=== PATIENT | female | born 1935 | race Caucasian/White ===

== ENCOUNTER 2018-01-26 14:26 | Emergency (ER) | payer OTHER, MEDICARE ==
--- NOTE | 2018-01-26 14:45 | PDOC ---
Rapid Medical Evaluation Time Seen by Provider: 01/26/18 14:43 Medical Evaluation: Allergies Allergy/AdvReac Type Severity Reaction Status Date / Time No Known Allergies Allergy Verified 02/07/16 19:50 01/26/18 14:44 I have performed a brief in-person evaluation of this patient. The patient presents with a chief complaint of: L foot pain s/p trip and fall, no LOC Pertinent physical exam findings:L mid foot pain/swelling I have ordered the following:xray The patient will proceed to the ED for further evaluation. Discharge Disposition - Diagnosis Foot pain, left - Referrals Referrals: Yehuda Ruff MD [Primary Care Provider] - - Patient Instructions - Post Discharge Activity
[2018-01-26 14:47] VITALS: BP 113/56; PULSE 77; TEMP 98; BMI 22.6
--- NOTE | 2018-01-26 15:31 | PDOC ---
History of Present Illness - General Chief Complaint: Injury Stated Complaint: INJURY Time Seen by Provider: 01/26/18 14:43 - History of Present Illness Initial Comments: 83-year-old female left foot pain after twisting injury. The injury occurred yesterday. She did not fall she simply twisted her left foot. She points to the areas of the second and third MTPJs as the area of her discomfort. Pain is exacerbated with weightbearing relieved with rest. 01/26/18 15:28 Past History - Past Medical History Allergies/Adverse Reactions: Allergies Allergy/AdvReac Type Severity Reaction Status Date / Time No Known Allergies Allergy Verified 01/26/18 14:47 Home Medications: Ambulatory Orders Aspirin [ASA -] 81 mg PO DAILY 02/07/16 Atorvastatin Ca [Lipitor] 20 mg PO HS 02/07/16 Calcitriol [Rocaltrol -] 0.25 mcg PO HS 02/07/16 Docusate Sodium [Stool Softener] 50 mg PO HS 02/07/16 Metoprolol Tartrate 12.5 mg PO HS 02/07/16 Metoprolol Tartrate 25 mg PO AM 02/07/16 Hypercholesterolemia: Yes Lung CA: Yes - Suicide/Smoking/Psychosocial Hx Smoking History: Never smoked Have you smoked in the past 12 months: No If you are a former smoker, when did you quit?: 28 yrs Information on smoking cessation initiated: No Hx Alcohol Use: No Drug/Substance Use Hx: No Substance Use Type: None Review of Systems - Review of Systems Musculoskeletal: Yes: See HPI, Joint Pain All Other Systems: Reviewed and Negative *Physical Exam - Vital Signs Last Vital Signs Temp Pulse Resp BP Pulse Ox 98.0 F 77 16 113/56 100 01/26/18 14:44 01/26/18 14:44 01/26/18 14:44 01/26/18 14:44 01/26/18 14:44 - Physical Exam Comments: Left foot skin color and temperature are normal is full range of motion of the ankle and knee. There is no tenderness about the knee proximal fibula or along its distal course. Thighs and calves are soft and nontender. No tenderness about the medial malleolus, lateral malleolus, base of the fifth metatarsal, or navicular. There is tenderness about the second third MTPJ of the left foot. There are no gross sensorimotor deficits she is neurovascularly intact. 01/26/18 15:28 Medical Decision Making - Medical Decision Making Do not appreciate an acute fracture on radiograph today. This is most likely and MTP sprain of the left foot hard sole shoe weight-bear as tolerated with crutches follow-up with orthopedic surgery 01/26/18 15:29 *DC/Admit/Observation/Transfer Diagnosis at time of Disposition: Foot pain, left, Sprain of foot - Discharge Dispostion Disposition: HOME Condition at time of disposition: Stable Decision to Admit order: No - Referrals Referrals: Yehuda Ruff MD [Primary Care Provider] - Carroll Barajas MD [Staff Physician] - - Patient Instructions Printed Discharge Instructions: DI for Foot Sprain Additional Instructions: A past tolerated with use of crutches and the hard sole shoe. Elevate your foot for swelling control. May take Tylenol for pain. Follow-up with orthopedic surgery in 2-3 days for further evaluation and treatment options. Return to the emergency room should symptoms worsen or go unresolved. - Post Discharge Activity
== END 2018-01-26 15:54 | disposition home or self-care (01) ==
LOC: JERFT 14:26
DX: S93.692A Other sprain of left foot, initial encounter (principal); X50.1XXA Overexertion from prolonged static or awkward postures, initial encounter; Y93.89 Activity, other specified; Y92.89 Other specified places as the place of occurrence of the external cause; Y99.8 Other external cause status
CPT/HCPCS: 73630-TC-LT; 99281-25

== ENCOUNTER 2019-02-08 15:05 | Emergency (ER) | payer OTHER, MEDICARE | END 2019-02-08 21:35 | disposition home or self-care (01) | LOC: JER 15:05 ==

== ENCOUNTER 2020-01-13 21:12 | Inpatient (IN) | payer OTHER, MEDICARE ==
--- NOTE | 2020-01-13 21:57 | PDOC ---
History of Present Illness - General Stated Complaint: FALL Time Seen by Provider: 01/13/20 21:56 History Source: Patient, Other (daughter) - History of Present Illness Initial Comments: 01/13/20 21:57 HPI: This is an 85 y/o female with a PMH of bronchogenic Ca s/p lobectomy, R. lung nodules s/p radiation (2017), HTN, HLD, COPD on 3L NC BIBA after an unwitnessed fall at home. Per the daughter, the patient got up when she was out of the room to try and walk, and when she came back she found her down on the ground. She fell on her left side, and is complaining of back and left rib pain. Patent is also complaining of abdominal pain, shortness of breath, but denies chest pain. When she was brought it by EMS, she was tachycardic in the 140's. ROS: GENERAL/CONSTITUTIONAL: No fever/chills. Yes weakness. HEAD, EYES, EARS, NOSE AND THROAT: Hard of hearing in both ears. CARDIOVASCULAR: No chest pain or Yes shortness of breath. RESPIRATORY: No cough, wheezing, or hemoptysis. GASTROINTESTINAL: No nausea, vomiting, diarrhea or constipation. GENITOURINARY: No dysuria, frequency, or change in urination. MUSCULOSKELETAL: Yes right sided rib pain, diffuse back pain. SKIN: No rash NEUROLOGIC: No headache, vertigo, loss of consciousness, or change in strength/sensation. HEMATOLOGIC/LYMPHATIC: No anemia, easy bleeding, or history of blood clots. ALLERGIC/IMMUNOLOGIC: No hives or skin allergy. PMH: bronchogenic Ca s/p lobectomy, R. lung nodules s/p radiation (2017), HTN, HLD, COPD on 3L NC Social Hx: Denies current etoh or tobacco Meds: See nurse note. Allergies: Azithromycin PE: GENERAL: Awake, alert. Patient has confusion at baseline per daughter. Patient laying in bed, tachypneic with some accessory muscle use. HEAD: No signs of trauma. No tenderness to palpation. EYES: PERRLA, EOMI NECK: Normal ROM, supple, no lymphadenopathy, JVD, or masses. No tenderness to palpation of cervical spine. LUNGS: Breath sounds equal, clear to auscultation bilaterally. No wheezes, and no crackles HEART: Tachycardic and regular. ABDOMEN: Soft, diffusely tender to palpation. MUSCULOSKELETAL: Tenderness to palpation along thoracic and lumbar spine. EXTREMITIES: Normal range of motion, no edema. No clubbing or cyanosis. No cords, erythema, or tenderness NEUROLOGICAL: Cranial nerves II through XII grossly intact. Normal speech, normal gait SKIN: Warm, Dry, normal turgor, no rashes or lesions noted. ' MDM: 01/14/20 00:05 This is an 85 y/o female with a PMH of bronchogenic Ca s/p lobectomy, R. lung nodules s/p radiation (2017), HTN, HLD, COPD on 3L NC BIBA after an unwitnessed fall at home. Per the daughter, the patient got up when she was out of the room to try and walk, and when she came back she found her down on the ground. She fell on her left side, and is complaining of back and left rib pain. Patent is also complaining of abdominal pain, shortness of breath, but denies chest pain. Patient is extremely hard of hearing and currently tachypneic, she also has confusion at baseline. Unable to assess where she is in pain. - When patient arrived she was tachycardic in the 140's - Short of breath, placed on 7L NC which was upgraded to non-rebreather - Saturating at 100% on non-rebreather. Patient is still tachypneic. - CBC, CMP, Cardiac panel, UA, urine culture, blood culture, EKG - Unwitnessed fall, with diffuse tenderness to palpation. Will CT head, cervical, lumbar and thoracic spine. -EKG with no ST elevations. sinus tachycardia with short AK, left atrial enlargement, left ventricular hypertrophy with repolarization abnormality. Abnormal EKG Vent rate 138 bpm. AK interval 98ms. QRS duration 72ms. QT/QTc 298/451. - Will give 2mg morphine and IV acetaminophen for pain control and reassess - Metoprolol 5mg to control tachycardia - HR now in the 90's. Patient is able to answer questions. She says that she doesn't have any pain when she isn't moving. - Labs significant for: - Troponin .12 - WBC 27.5k. Patient is on prednisone. Not sure if this is causing the leukocytosis or if she also has an infection. - UA negative for infection - Gave ASA - Repeat EKG with no ST elevations. Unchanged from previous EKG. Sinus tachycardia. Left ventricular hypertrophy with repolarization abnormalities. Vent rate 132 bpm. AK interval 124ms. QRS duration 66ms. QT/QTc 302/447ms - Patient denies any current chest pain. Improvement in SOB - Plan to admit to tele. Repeat troponin and EKG at 01:00 01/14/20 00:05 - Patient signed out to Dr. Rabago Past History - Medical History Allergies/Adverse Reactions: Allergies Allergy/AdvReac Type Severity Reaction Status Date / Time azithromycin [From Zithromax] Allergy Verified 02/08/19 15:33 Home Medications: Ambulatory Orders Aspirin [ASA -] 81 mg PO DAILY 02/07/16 Atorvastatin Ca [Lipitor] 20 mg PO HS 02/07/16 Docusate Sodium [Stool Softener] 100 mg PO HS 02/07/16 Budesonide/Formeterol Fumarate [SYMBICORT 80/4.5mcg -] 2 puff IH DAILY 12/17/18 Fluticasone Propionate [Flovent Diskus] 50 mcg IH DAILY MDD 2 puffs 12/17/18 Pantoprazole Sodium [Protonix -] 40 mg PO DAILY 12/17/18 Acetaminophen [Tylenol .Regular Strength -] 650 mg PO Q6H PRN tablet 12/23/18 Calcium 500Mg/Vit-D 200 Units [Os-Hector 500+D -] 2 tab PO DAILY #30 tab 12/23/18 Lubiprostone [Amitiza] 24 mcg PO DAILY PRN 02/08/19 Albuterol 2.5/Ipratropium 0.5 [Duoneb -] 1 neb IH QID 01/14/20 predniSONE [Deltasone -] 15 mg PO DAILY 01/14/20 Cancer: Yes (LUNG CA, lobectomy on 3lnc at home) COPD: Yes HTN: Yes Hypercholesterolemia: Yes Lung CA: Yes - Psycho-Social/Smoking History Smoking History: Former smoker Have you smoked in the past 12 months: No If you are a former smoker, when did you quit?: 30years Heart Score/ECG Review - History History: Slightly suspicious - Electrocardiogram EKG: Non specific repolarization disturbance - Age Age: >/= 65 - Risk Factors Risk Factors Heart Score: Yes Hx Hypercholesterolemia, Yes Hx Hypertension Based on the list above the patient has:: 1-2 risk factors - Troponin Troponin: 1-3x normal limit - Score Heart Score - Total: 5 - ECG Intrepretation Comment:: 01/14/20 00:[address] elevations. sinus tachycardia with short AK, left atrial enlargement, left ventricular hypertrophy with repolarization abnormality. Abnormal EKG Vent rate 138 bpm. AK interval 98ms. QRS duration 72ms. QT/QTc 298/451. Repeat EKG with no ST elevations. Unchanged from previous EKG. Sinus tachycardia. Left ventricular hypertrophy with repolarization abnormalities. Vent rate 132 bpm. AK interval 124ms. QRS duration 66ms. QT/QTc 302/447ms ED Treatment Course - LABORATORY CBC & Chemistry Diagram: 01/14/20 08:00 01/14/20 08:00 Discharge - Discharge Information Problems reviewed: Yes Clinical Impression/Diagnosis: Compression fracture of body of thoracic vertebra Mastoiditis Qualifiers: Laterality: unspecified laterality Qualified Code(s): H70.90 - Unspecified mastoiditis, unspecified ear Lung cancer Qualifiers: Laterality: unspecified laterality Lung location: unspecified part of lung Qualified Code(s): C34.90 - Malignant neoplasm of unspecified part of unspecified bronchus or lung Pneumonia Qualifiers: Qualified Code(s): J18.9 - Pneumonia, unspecified organism Fall Qualifiers: Encounter type: initial encounter Qualified Code(s): W19.XXXA - Unspecified fall, initial encounter - Admission Yes - Follow up/Referral - Patient Discharge Instructions - Post Discharge Activity
[2020-01-13] MEDS ORDERED: SODIUM CHLORIDE 0.9% 500 ML INFUS.BAG IV ONE (22:00)
[2020-01-13 22:14] VITALS: BMI 24.4
[2020-01-13 22:17] LABS: BASO % 1.1 % (0-2.0); HEMATOCRIT 46.4 % (32.4-45.2); HEMOGLOBIN 14.8 GM/dL (10.7-15.3); LYMPH % 4.9 % (8-40); MCH 29.1 pg (25.7-33.7); MEAN PLT VOLUME 8.2 fl (7.5-11.1); MONO % 4.2 % (3.8-10.2); NEUT % 89.8 % (42.8-82.8); PLATELET COUNT 196 K/MM3 (134-434); RDW 14.6 % (11.6-15.6); WHITE BLOOD COUNT 27.5 K/mm3 (4.0-10.0)
[2020-01-13 22:24] LABS: INR 1.03 (0.83-1.09); PROTHROMBIN TIME (PATIENT) 12.1 SEC (9.7-13.0)
[2020-01-13 22:27] LABS: ACTIVATED PTT 25.3 SECONDS (25.2-36.5)
[2020-01-13] MEDS ORDERED: PIPERACILLIN/TAZOB 3.375 GM 3.375 GM in DEXTROSE 5%-WATER - 50 ML IVPB ONE (22:39)
[2020-01-13 22:46] LABS: ALBUMIN 3.3 g/dl (3.4-5.0); BILIRUBIN,TOTAL 0.5 mg/dL (0.2-1); BLOOD UREA NITROGEN 21.2 mg/dL (7-18); CALCIUM 8.9 mg/dL (8.5-10.1); CREATININE 0.7 mg/dL (0.55-1.3); POTASSIUM 4.1 mmol/L (3.5-5.1); TOT PROT 6.4 g/dl (6.4-8.2)
[2020-01-13] MEDS ORDERED: ACETAMINOPHEN 1000 MG/100 ML VIAL (NON FORMULARY) IVPB ONE (23:05)
[2020-01-13] MEDS ORDERED: morphine CARPU-JECT 2 MG/1 ML DISP.SYRIN IVPUSH ONE (23:14)
[2020-01-13 23:18] LABS: ANISOCYTOSIS 1+; MACROCYTOSIS 0
[2020-01-13 23:21] LABS: PLATELET ESTIMATE ADEQUATE
[2020-01-13] MEDS ORDERED: ACETAMINOPHEN INJECTION 100 ML IVPB ONE (23:46)
[2020-01-13] MEDS ORDERED: MORPHINE SULFATE 2 MG/ML VIAL ONE (23:46)
[2020-01-13] MEDS ORDERED: PIPERACILLIN/TAZOB 3.375 GM 3.375 GM/50 ML BAG IVPB ONE (23:47)
[2020-01-13] MEDS ORDERED: ASPIRIN 81 MG CHEWABLE TABLETS PO ONE (23:58)
[2020-01-13] MEDS ORDERED: METOPROLOL TARTRATE 5 MG/5 ML VIAL IVPUSH ONE (23:59)
[2020-01-14] MEDS ORDERED: METOPROLOL TARTRATE 5 MG/5 ML VIAL ONE (00:03)
[2020-01-14] MEDS ORDERED: ASPIRIN 81 MG CHEWABLE TABLETS ONE (00:03)
--- NOTE | 2020-01-14 00:49 | PDOC ---
*Physical Exam - Vital Signs Last Vital Signs Temp Pulse Resp BP Pulse Ox 98.2 F 141 H 27 H 122/72 92 L 01/13/20 22:10 01/13/20 22:10 01/13/20 22:10 01/13/20 22:10 01/13/20 22:10 ED Treatment Course - LABORATORY CBC & Chemistry Diagram: 01/14/20 08:00 01/14/20 08:00 - ADDITIONAL ORDERS Additional order review: Laboratory Results 01/13/20 01/13/20 22:00 22:00 PT with INR 12.10 INR 1.03 PTT (Actin FS) 25.3 Sodium 142 Potassium 4.1 Chloride 107 Carbon Dioxide 26 Anion Gap 9 BUN 21.2 H Creatinine 0.7 Est GFR (CKD-EPI)AfAm 91.57 Est GFR (CKD-EPI)NonAf 79.00 Random Glucose 179 H Calcium 8.9 Total Bilirubin 0.5 AST 32 ALT 46 Alkaline Phosphatase 62 Troponin I 0.12 H Total Protein 6.4 Albumin 3.3 L 01/13/20 22:00 RBC 5.10 MCV 91.0 MCHC 32.0 RDW 14.6 MPV 8.2 Neutrophils % 89.8 H D Lymphocytes % 4.9 L D Monocytes % 4.2 Eosinophils % 0.0 D Basophils % 1.1 - Medications Given in the ED: ED Medications Discontinued Medications Generic Name Dose Route Start Last Admin Trade Name Freq PRN Reason Stop Dose Admin Acetaminophen 1,000 mg 01/13/20 23:05 01/13/20 23:59 Ofirmev Injection - IVPB 01/13/20 23:06 1,000 mg ONCE ONE Administration Piperacillin Sod/Tazobactam 50 mls @ 100 mls/hr 01/13/20 22:39 01/13/20 23:58 Sod 3.375 gm/ Dextrose IVPB 01/13/20 23:08 100 mls/hr ONCE ONE Administration Protocol Morphine Sulfate 2 mg 01/13/20 23:14 01/13/20 23:59 Morphine Injection - IVPUSH 01/13/20 23:15 2 mg ONCE ONE Administration Sodium Chloride 500 ml 01/13/20 22:00 01/13/20 22:30 Normal Saline - IV 01/13/20 22:01 500 ml ONCE ONE Administration Medical Decision Making - Medical Decision Making This is an 85 y/o female with a PMH of bronchogenic Ca s/p lobectomy, R. lung nodules s/p radiation (2017), HTN, HLD, COPD on 3L NC, Confused at baseline, BIBA after an unwitnessed fall at home. Found to be tachypneic, hypoxic, put on non-rebreather. - satting 100% on nonrebreather - EKG with no ST elevations. sinus tachycardia with short KS, left atrial enlargement, left ventricular hypertrophy with repolarization abnormality. Abnormal EKG Vent rate 138 bpm. KS interval 98ms. QRS duration 72ms. QT/QTc 298/451. - given 2mg morphine and IV acetaminophen, Metoprolol 5mg for tachycardia - Labs significant for: Troponin 0.12, WBC 27.5k. Patient is on prednisone for COPD - Gave ASA - Repeat EKG unchanged - Patient denies chest pain Pt signed out by Dr. Pardo Pending CT Will be admitted to hospitalist given elevated troponin 01/14/20 00:49 UA: -LE, -nitrites 01/14/20 03:16 Elevated second troponin 0.38 CT head: Chronic microvascular changes. No acute intracranial abnormality. No hemorrhage. Opacification of the bilateral mastoid air cells as well as a part of the left middle ear canal. Could represent granulation tissue but check for otitis/mastoiditis. CT AP: no bowel obstruction or inflammation. No free intraperitoneal air or free fluid. Negative for diverticulitis or colitis. Normal appendix. Gallstones noted in the gallbladder. Multiple liver lesions are noted that have the appearance of cysts. Normal spleen, pancreas, adrenal glands, kidneys, urinary tract and urinary bladder. Multiple uterine masses are identified. Some have the appearance of calcified fibroids but some are indeterminate. Healing left inferior pubic ramus fracture is noted. CT chest: Positive for fairly advanced emphysematous changes. Multiple bilateral blebs as well. There is also infiltrate and atelectasis in the right upper lobe. infiltrates in the lower lobes which may be chronic. Some of the right upper lobe atelectatic change has a nodular appearance on the axial views and therefore follow-up recommended to rule out neoplasm. No pneumothorax or pneumomediastinum. No pleural effusions. Cardiomegaly and calcified coronary artery plaque. No pericardial effusions. No thoracic aort icaneurysm. Healing left rib fractures. CT lumbar: There is a mild compression fracture of the superior endplate of T12. Less than 50% loss of height. This is of indeterminate age. No retropulsion. Slight anterolisthesis of L5 on S1 likely degenerative. Sclerotic foci in the L2 vertebral body. Indeterminate. Will need follow-up to make sure there is no bony metastatic disease. CT thoracic spine: Multiple compression fractures: T8, T9, T12. These fractures are of indeterminate age. No major retropulsion. Slight loss of height superior endplate T10. There is T5 compression fracture with vertebroplasty. Two physician acknowledgement of code status. This rewriter and attending (Dr. Gonzalez) discussed code status with patient's daughter. Pt's daughter states that patient is DNR (no compressions), but can be intubated. Disposition Admit Discharge - Discharge Information Problems reviewed: Yes Clinical Impression/Diagnosis: Compression fracture of body of thoracic vertebra Mastoiditis Qualifiers: Laterality: unspecified laterality Qualified Code(s): H70.90 - Unspecified mastoiditis, unspecified ear Fall Qualifiers: Encounter type: initial encounter Qualified Code(s): W19.XXXA - Unspecified fall, initial encounter Lung cancer Qualifiers: Laterality: unspecified laterality Lung location: unspecified part of lung Qualified Code(s): C34.90 - Malignant neoplasm of unspecified part of unspe cified bronchus or lung Pneumonia Qualifiers: Qualified Code(s): J18.9 - Pneumonia, unspecified organism - Follow up/Referral - Patient Discharge Instructions - Post Discharge Activity
--- NOTE | 2020-01-14 00:50 | PDOC ---
Attending Attestation - Resident Resident Name: Clarissa Rabago - ED Attending Attestation I have performed the following: I have examined & evaluated the patient, The case was reviewed & discussed with the resident, I agree w/resident's findings & plan - HPI HPI: 01/14/20 20:52 This is an 85 y/o female with a PMH of bronchogenic Ca s/p lobectomy, R. lung nodules s/p radiation (2017), HTN, HLD, COPD on 3L NC BIBA after an unwitnessed fall at home. Per the daughter, the patient got up when she was out of the room to try and walk, and when she came back she found her down on the ground. She fell on her left side, and is complaining of back and left rib pain. Patent is also complaining of abdominal pain, shortness of breath, but denies chest pain. - Physicial Exam PE: 01/14/20 20:53 Pt is tachycardixc and anxious pt owning agree with resident exam - Medical Decision Making 01/14/20 02:07 Pt's UA is normal Pt has an elevated WBC count; unclear if this is solely due to her chronic use of steroids; but she a;lso has a significant leftward shift 01/14/20 02:08 01/14/20 02:08 First trop is elevated at 0.12; she will have a repeat trop. This is likely due to demand ischemia, denny as she arrived with a tachycardia of 140s. 01/14/20 02:08 01/14/20 02:45 Trop continues to go up; Pt's CT head shows no active bleeding, so we are safe to give lovenox to thin her blood. 01/14/20 03:43 Patient Name: KETTY TRIMBLE THIS IS A PRELIMINARY REPORT DATE OF SERVICE: 2020-01-14 01:03:42 IMAGES: [id number] EXAM: CT abdomen and pelvis with contrast and CT of the lumbar spine with contrast HISTORY: Tachycardia abdominal pain fall without injury high white count COMPARISON: None. FINDINGS: Abdomen and pelvis: There is no bowel obstruction or inflammation. There are some colonic diverticula. Negative for diverticulitis or colitis. Normal appendix. Gallstones noted in the gallbladder. Multiple liver lesions are noted that have the appearance of cysts. Normal spleen. Normal pancreas. Normal adrenal glands. Normal kidneys urinary tract and urinary bladder. Multiple uterine masses are identified. Some have the appearance of calcified fibroids but some are indeterminate. Follow-up recommended to rule out [employer] neoplasm. No free intraperitoneal air or free fluid. Healing left inferior pubic ramus fracture is noted. Lumbar spine: There is a mild compression fracture of the superior endplate of T12. Less than 50% loss of height. This is of indeterminate age. No retropulsion. Slight anterolisthesis of L5 on S1 likely degenerative. Sclerotic foci in the L2 vertebral body. Indeterminate. Will need follow-up to make sure there is no bony metastatic disease. 01/14/20 03:46 Patient Name: KETTY TRIMBLE THIS IS A PRELIMINARY REPORT DATE OF SERVICE: 2020-01-14 00:59:36 IMAGES: [id number] EXAM: CT chest without and with contrast and CT thoracic spine with contrast HISTORY: Tachycardia abdominal pain fall high white count COMPARISON: None. FINDINGS: Chest: Positive for fairly advanced emphysematous changes. Multiple bilateral blebs as well. There is also infiltrate and atelectasis in the right upper lobe. Difficult to determine how much of this is chronic or if there is an acute component. Similarly there are infiltrates in the lower lobes which may be chronic but not certain and therefore follow-up recommended to exclude acute component/pneumonia. Please correlate with any acute pulmonary symptoms. Some of the right upper lobe atelectatic change has a nodular appearance on the axial views and therefore follow-up recommended to rule out neoplasm. No pneumothorax or pneumomediastinum. No pleural effusions. Cardiomegaly and calcified coronary artery plaque. No pericardial effusions. No thoracic aortic aneurysm. Healing left rib fractures 01/14/20 20:54 Pt will be admitted for further eval. Discharge - Discharge Information Problems reviewed: Yes Clinical Impression/Diagnosis: Compression fracture of body of thoracic vertebra Mastoiditis Qualifiers: Laterality: unspecified laterality Qualified Code(s): H70.90 - Unspecified mastoiditis, unspecified ear Fall Qualifiers: Encounter type: initial encounter Qualified Code(s): W19.XXXA - Unspecified fall, initial encounter Lung cancer Qualifiers: Laterality: unspecified laterality Lung location: unspecified part of lung Qualified Code(s): C34.90 - Malignant neoplasm of unspecified part of unspecified bronchus or lung Pneumonia Qualifiers: Qualified Code(s): J18.9 - Pneumonia, unspecified organism - Admission Yes - Follow up/Referral - Patient Discharge Instructions - Post Discharge Activity
[2020-01-14 00:57] LABS: PH,URINE 5.5 (5.0-8.0); URINE APPEARANCE Clear; URINE BILIRUBIN 1+ (NEGATIVE); URINE COLOR Yellow; URINE GLUCOSE (UA) Negative (NEGATIVE); URINE KETONE Trace (NEGATIVE); URINE LEUK ESTERASE Negative (NEGATIVE); URINE NITRITE Negative (NEGATIVE); URINE PROTEIN 2+ (NEGATIVE); URINE UROBILINOGEN 0.2 mg/dL (0.2-1.0)
[2020-01-14] MEDS ORDERED: VANCOMYCIN 1 GM in D5W (PRE-DOCKED) 1,000 MG/250 ML IVPB ONE (03:14)
[2020-01-14] MEDS ORDERED: LORazepam 2 MG/ML SDV VIAL ONE (03:14)
[2020-01-14] MEDS ORDERED: VANCOMYCIN 1 GRAM (PRE-DOCKED) 1,000 MG/250 ML BAG IVPB ONE (03:16)
--- NOTE | 2020-01-14 03:36 | PN ---
Teaching Attending Note Name of Resident: Jerzy Wahl ATTENDING PHYSICIAN STATEMENT I saw and evaluated the patient. I reviewed the resident's note and discussed the case with the resident. I agree with the resident's findings and plan as documented. SUBJECTIVE: Patient is an 85 year old woman with a PMH of Bronchogenic carcinoma (s/p lob ectomy), Right lung nodules (s/p radiation 2017), Dementia, Hearing impairment, Pulmonary fibrosis, HTN, HLD, COPD on 3L NC brought in by ambulance after an unwitnessed fall at home. Per the daughter, the patient got up when she was out of the room to try and walk, and when she came back she found her down on the ground. She fell on her left side, and is complaining of back and left rib pain. Patent was also complaining of abdominal pain, shortness of breath, but denies chest pain. On arrival she was tachycardic in the 140's and got Metoprolol 5 mg IV. Daughter reports that she is confused at baseline. There is no reported history of fever, chills, nausea, vomiting, diarrhea, frequency, melena, hematochezia, hematuria, urinary or fecal incontinence. No reported alcohol, tobacco or illic it drug use. No reported sick contacts or recent travels. Family history is unremarkable. Patient became agitated while in the ER and had to be sedated with Ativan. OBJECTIVE: Lethargic on nonrebreather Vital Signs Period Temp Pulse Resp BP Sys/Alonzo Pulse Ox Last 24 Hr 98.2 F 141 27 122-127/72-72 92 HEENT: No Jaundice, eye redness or discharge, PERRLA, EOMI. Normocephalic, atraumatic. External ears are normal; impaired hearing. No nasal discharge. Neck: Supple, nontender. No palpable adenopathy or thyromegaly. No JVD Chest: Good effort. Right ribcage tenderness. Prolonged expiration. Heart: Tachycardia. No S3, rub or murmur Abdomen: Not distended, soft, nontender and no HSM. No rebound or guarding. Normal bowel sounds. Ext: Peripheral pulses intact. No leg edema. Thoracolumbar vertebral tenderness Skin: Warm and dry. No petechiae, rash or ecchymosis. Neuro: Lethargic but arousable. Withdraws limbs to noxious stimuli. Psych: Unable to assess. Home Medications Medication Instructions Recorded Aspirin [ASA -] 81 mg PO DAILY 02/07/16 Atorvastatin Ca [Lipitor] 20 mg PO HS 02/07/16 Docusate Sodium [Stool Softener] 100 mg PO HS 02/07/16 Budesonide/Formeterol Fumarate 2 puff IH DAILY 12/17/18 [SYMBICORT 80/4.5mcg -] Fluticasone Propionate [Flovent 50 mcg IH DAILY MDD 2 puffs 12/17/18 Diskus] Pantoprazole Sodium [Protonix -] 40 mg PO DAILY 12/17/18 Acetaminophen [Tylenol .Regular 650 mg PO Q6H PRN tablet 12/23/18 Strength -] Calcium 500Mg/Vit-D 200 Units 2 tab PO DAILY #30 tab 12/23/18 [Os-Hector 500+D -] Lubiprostone [Amitiza] 24 mcg PO DAILY PRN 02/08/19 Abnormal Lab Results 01/13/20 01/13/20 01/14/20 22:00 22:00 00:30 WBC 27.5 H Hct 46.4 H D Absolute Neuts (auto) 24.7 H Neutrophils % 89.8 H D Neutrophils % (Manual) 85.5 H Lymphocytes % 4.9 L D Lymphocytes % (Manual) 4.0 L BUN 21.2 H Random Glucose 179 H Lactic Acid Troponin I 0.12 H Albumin 3.3 L Urine Protein 2+ H Urine Bilirubin 1+ H 01/14/20 01/14/20 00:40 01:30 WBC Hct Absolute Neuts (auto) Neutrophils % Neutrophils % (Manual) Lymphocytes % Lymphocytes % (Manual) BUN Random Glucose Lactic Acid 4.5 H* Troponin I 0.38 H Albumin Urine Protein Urine Bilirubin Current Medications Generic Name Dose Route Start Last Admin Trade Name Freq PRN Reason Stop Dose Admin Enoxaparin Sodium 60 mg 01/14/20 10:00 Lovenox - SQ DAILY MENDEZ ASSESSMENT AND PLAN: 1. Fall/Pneumonia/?NSTEMI - Fall may be related to underlying infection. Preliminary report of CT scan of chest shows RUL infiltrate. She got IV contrast for other CT studies, so we can't get CTA to rule out pulmonary embolism. CT scan of head/thoracic spine with IV contrast, and abdomen/pelvis showed no evidence of acute intracranial pathology, compression fracture of T12 of indeterminate age, sclerotic foci in L2 vertebral body and multiple fibroids. Preliminary reading of hip/pelvis xray didnot reveal any fracture or dislocation. Sepsis workup done and patient stated on IV Vancomycin and IV Zosyn with IV NS according to sepsis protocol and trend lactic acid. Patient reportedly on Prednisone at home. EKG shows sinus tachycardia at 138/minute, LAE, LVH and QTc [address]-T wave changes. Troponin is elevated x 2, 0.12 and 0.38. May be demand ischemia, but she got Lovenox 60 mg in the ER and Aspirin 162 mg. Will admit to telemetry, trend troponin, repeat EKG, get ECHO, TSH, carotid doppler, fasting lipids, brain MRI, do speech and swallow evaluation, neurochecks and implement fall/aspiration/seizure precautions. Treat with So lumedrol, Duoneb and Symbicort. Consult Cardiology/Neurology/ID/Pulmonary. Viral testing for COVID-19 ordered and patient placed on airborne, droplet and contact isolation. Started on supplemental oxygen non-rebreather mask. Will continue comprehensive care for all of patients comorbid conditions. 2. Hypertension Will restart suitable outpatient antihypertensive drugs when clinically appropriate. Subsequently, will revise regimen to ensure [id number] excellent BP control. Patient counseled on the injurious effects of uncontrolled hypertension. Nonpharmacologic measures to control hypertension like weight loss, salt restriction and exercise stressed. Importance of adherence to treatment regimen and attainment of normotension emphasized. 3. Hypoalbuminemia - Possibly due to combined effects of proteinuria, malnutrition and inflammation associated with comorbid conditions. Will ensure adequate dietary protein intake and also consult digital production manager. 4. DVT prophylaxis - Got the first dose of Lovenox 60 mg SQ start for possible ?NSTEMI. 5. Advance directives - Full code
--- NOTE | 2020-01-14 05:45 | HP ---
CHIEF COMPLAINT: sp fall, multifocal pain(Left-chest wall, chest, abd) PCP: HISTORY OF PRESENT ILLNESS: 85F w/ pmh of bronchogenic Ca s/p lobectomy(last rad tx April 2018; onc Dr. Bubba Moreau), R. lung nodules s/p radiation (2017), HTN, HLD, COPD on 3L home O2, dementia NC BIBA after unwtinessed fall at home. Found down on Left-side. No LOC at that time. At [facility], had multifocal complaint of pain to the Left chest wall, chest, and abd. Reportedly, pt was alert and somewhat oriented. Pt was displaying agitation in the ED, so received Ativan 1mg. At time of this interviewer's evaluation, pt was somnolent and not able to participate in the interview process. History mostly obtained from chart review ER course was notable for: -EMS: tachy to 140s -afeb, HR 141, BP 122/72, placed on NRB -EKG with no ST elevations. sinus tachycardia with short OH, left atrial enlargement, left ventricular hypertrophy with repolarization abnormality. Abnormal EKG. Vent rate 138 bpm. OH interval 98ms. QRS duration 72ms. QT/QTc 298/451. -Repeat EKG with no ST elevations. Unchanged from previous EKG. Sinus tachycar shanell. Left ventricular hypertrophy with repolarization abnormalities. Vent rate 132 bpm. OH interval 124ms. QRS duration 66ms. QT/QTc 302/447ms -HEART 5 -CTH: prelim::neg acute. Opacification of the b/l mastoid air cells as well as a part of the Left middle ear canal. -CT A/P w/ contrast:: no bowel obstruction. Some colonic diverticula, neg diverticulitis or colitis. Gallstones in the GB. Multiple liver lesions that have the appearance of cyst. Multiple uterine masses, some have appearance of calcified fibroids, but some are indeterminate. -CT Lspine: mild compression fracture of the superior endplate of T12, less than 50% loss of height. Slight anterolithesis of L5 on S1, likely degenerative. Sclerotic foci in the L2 vertebral body -CT chest w/wo contrast: advanced emphysematous changes, multiple b/l blebs. Infiltrate and atelectasis in the RIght upper lobe. Infiltrates in the lower lobes. Healing Left rib fractures -CT Tspine: multiple compression fractures of T8, T9, T12 of age indeterminate. T5 compression fracture w/ verteboplasty -NS 500, vanc, zosyn, morphine 2mg, metoprolol 5mg IVP, Ativan 1mg(d/t agitation), ASA 162mg, Ofirmev, lovenox 60 Recent Travel: PAST MEDICAL HISTORY: as above PAST SURGICAL HISTORY: Social History: Smoking: former smoker, 20-30ys prior Alcohol: Drugs: Allergies azithromycin [From Zithromax] Allergy (Verified 02/08/19 15:33) HOME MEDICATIONS: Home Medications Medication Instructions Recorded Aspirin [ASA -] 81 mg PO DAILY 02/07/16 Atorvastatin Ca [Lipitor] 20 mg PO HS 02/07/16 Docusate Sodium [Stool Softener] 100 mg PO HS 02/07/16 Budesonide/Formeterol Fumarate 2 puff IH DAILY 12/17/18 [SYMBICORT 80/4.5mcg -] Fluticasone Propionate [Flovent 50 mcg IH DAILY MDD 2 puffs 12/17/18 Diskus] Pantoprazole Sodium [Protonix -] 40 mg PO DAILY 12/17/18 Acetaminophen [Tylenol .Regular 650 mg PO Q6H PRN tablet 12/23/18 Strength -] Calcium 500Mg/Vit-D 200 Units 2 tab PO DAILY #30 tab 12/23/18 [Os-Hector 500+D -] Lubiprostone [Amitiza] 24 mcg PO DAILY PRN 02/08/19 Albuterol 2.5/Ipratropium 0.5 1 neb IH QID 01/14/20 [Duoneb -] predniSONE [Deltasone -] 15 mg PO DAILY 01/14/20 REVIEW OF SYSTEMS Pt unable to participate in the interview process PHYSICAL EXAMINATION Vital Signs - 24 hr 01/13/20 01/14/20 01/14/20 22:10 01:00 04:22 Temperature 98.2 F 98.1 F Pulse Rate 141 H Pulse Rate [ 102 H Left Radial] Respiratory 27 H 27 H Rate Blood Pressure 122/72 127/72 Blood Pressure 108/81 [Left Arm] O2 Sat by Pulse 92 L 95 Oximetry (%) 01/14/20 04:29 Temperature Pulse Rate Pulse Rate [ Left Radial] Respiratory Rate Blood Pressure Blood Pressure [Left Arm] O2 Sat by Pulse 98 Oximetry (%) GENERAL: somonolent. No acute distress. HEAD: NC, no scalp wounds noted EYES: sclera anicteric, conjunctiva clear. opening eyes briefly to painful stimuli EARS, NOSE, THROAT: Ears normal, nares patent. Moist mucous membranes. NECK: Normal range of motion, supple without lymphadenopathy, JVD, or masses. LUNGS: Left sided wheezes, and Right sided crackles. Breathing almost 30breaths/min, on NRB. No accessory muscle usage HEART: tachycardia, normal rthythm, normal S1 and S2 without murmur, rub or gallop. ABDOMEN: Soft, nontender, not distended, no guarding, no rebound, no masses. MUSCULOSKELETAL: No bony deformities or tenderness. No abrasions note UPPER EXTREMITIES: 2+ pulses, warm, well-perfused. No cyanosis. No clubbing. No peripheral edema. LOWER EXTREMITIES: 2+ pulses, warm, well-perfused. No calf tenderness. No peripheral edema. NEUROLOGICAL: GCS 8. Withdrawing from painful stimuli SKIN: Warm, dry, normal turgor, no rashes or lesions noted, normal capillary refill. Laboratory Results - last 24 hr 01/13/20 01/13/20 01/13/20 22:00 22:00 22:00 WBC 27.5 H RBC 5.10 Hgb 14.8 Hct 46.4 H D MCV 91.0 MCH 29.1 D MCHC 32.0 RDW 14.6 Plt Count 196 MPV 8.2 Absolute Neuts (auto) 24.7 H Neutrophils % 89.8 H D Neutrophils % (Manual) 85.5 H Band Neutrophils % 3.9 Lymphocytes % 4.9 L D Lymphocytes % (Manual) 4.0 L Monocytes % 4.2 Monocytes % (Manual) 7 Eosinophils % 0.0 D Eosinophils % (Manual) 0.0 Basophils % 1.1 Basophils % (Manual) 0.0 Myelocytes % (Man) 0 Promyelocytes % (Man) 0 Blast Cells % (Manual) 0 Nucleated RBC % 0 Metamyelocytes 0 Hypochromia 0 Platelet Estimate Adequate Platelet Comment No clumping noted Polychromasia 0 Poikilocytosis 0 Anisocytosis 1+ Microcytosis 1+ Macrocytosis 0 PT with INR 12.10 INR 1.03 PTT (Actin FS) 25.3 Sodium 142 Potassium 4.1 Chloride 107 Carbon Dioxide 26 Anion Gap 9 BUN 21.2 H Creatinine 0.7 Est GFR (CKD-EPI)AfAm 91.57 Est GFR (CKD-EPI)NonAf 79.00 Random Glucose 179 H Lactic Acid Calcium 8.9 Total Bilirubin 0.5 AST 32 ALT 46 Alkaline Phosphatase 62 Troponin I 0.12 H Total Protein 6.4 Albumin 3.3 L Urine Color Urine Appearance Urine pH Ur Specific [place] Urine Protein Urine Glucose (UA) Urine Ketones Urine Blood Urine Nitrite Urine Bilirubin Urine Urobilinogen Ur Leukocyte Esterase Urine RBC (Auto) 01/14/20 01/14/20 01/14/20 00:30 00:40 01:30 WBC RBC Hgb Hct MCV MCH MCHC RDW Plt Count MPV Absolute Neuts (auto) Neutrophils % Neutrophils % (Manual) Band Neutrophils % Lymphocytes % Lymphocytes % (Manual) Monocytes % Monocytes % (Manual) Eosinophils % Eosinophils % (Manual) Basophils % Basophils % (Manual) Myelocytes % (Man) Promyelocytes % (Man) Blast Cells % (Manual) Nucleated RBC % Metamyelocytes Hypochromia Platelet Estimate Platelet Comment Polychromasia Poikilocytosis Anisocytosis Microcytosis Macrocytosis PT with INR INR PTT (Actin FS) Sodium Potassium Chloride Carbon Dioxide Anion Gap BUN Creatinine Est GFR (CKD-EPI)AfAm Est GFR (CKD-EPI)NonAf Random Glucose Lactic Acid 4.5 H* Calcium Total Bilirubin AST ALT Alkaline Phosphatase Troponin I 0.38 H Total Protein Albumin Urine Color Yellow Urine Appearance Clear Urine pH 5.5 Ur Specific [place] 1.025 Urine Protein 2+ H Urine Glucose (UA) Negative Urine Ketones Trace Urine Blood Trace-intact Urine Nitrite Negative Urine Bilirubin 1+ H Urine Urobilinogen 0.2 Ur Leukocyte Esterase Negative Urine RBC (Auto) 6-10 ASSESSMENT/PLAN: 85F w/ pmh of bronchogenic Ca s/p lobectomy(last rad tx April 2018; onc Dr. Bubba Moreau), R. lung nodules s/p radiation (2017), HTN, HLD, COPD on 3L home O2, dementia [place] BIBA after unwtinessed fall at home. Found down on Left-side. No LOC at that time. At [facility], had multifocal complaint of pain to the Left chest wall, chest, and abd. Reportedly, pt was alert and somewhat oriented. Pt was displaying agitation in the ED, so received Ativan 1mg. Vitals notable tachy to 140s which has improved to 100s. WBC 27.5(reportedly on prednisone at home). Imaging findings showing progressing of RUL infilitrative disease that was already noted on 01/31/19. Admitted for PNA. #sepsis 2/2 Right-sided PNA > WBC 27.5(89.8% Neutrophils) > lactic acid 4.5, fu rpt Lactic Acid > afeb, HR 141, BP 122/72, placed on NRB > CTH: prelim::neg acute. Opacification of the b/l mastoid air cells as well as a part of the Left middle ear canal. > CT A/P w/ contrast:: no bowel obstruction. Some colonic diverticula, neg diverticulitis or colitis. Gallstones in the GB. Multiple liver lesions that have the appearance of cyst. Multiple uterine masses, some have appearance of calcified fibroids, but some are indeterminate. > CT Lspine: mild compression fracture of the superior endplate of T12, less than 50% loss of height. Slight anterolithesis of L5 on S1, likely degenerative. Sclerotic foci in the L2 vertebral body > CT chest w/wo contrast: advanced emphysematous changes, multiple b/l blebs. Infiltrate and atelectasis in the RIght upper lobe. Infiltrates in the lower lobes. Healing Left rib fractures > CT Tspine: multiple compression fractures of T8, T9, T12 of age indeterminate. T5 compression fracture w/ verteboplasty - abx regimen: --sp vanc + zosyn --ceftriaxone + doxy --day 1 - ID consult(Solo): - Pulm consult(Terrence): #sinus tachycardia --ED did not r/o for PE #elevated troponin > HEART 5 > troponin 0.12, 0.38 > Echo --pending ---to eval for Right-heart strain as pt has already received contrast recently so CTA could be too nephrotoxic - therapeutic lovenox --coverage for PE and/or NSTEMI - cardio consult(Froylan Brody) #uterine masses --ambiguous for malignancy - consider TVUS if pt's condition improves #chronic COPD --possible exacerbation - solumedrol 40 q8h - scheduled duoneb, ventolin PRN - symbicort FEN - NS @75 - NPO until mental status improves DVT PPX -therapeutic lovenox Family Medical History Family History: Unable to Obtain (pt has received Ativan) Visit type - Medication Review Med list reviewed for High Risk Meds patients 65 and older: No (pt sp Ativan, cannot provide history) - Emergency Visit Emergency Visit: Yes ED Registration Date: 01/14/20 Care time: The patient presented to the Emergency Department on the above date and was hospitalized for further evaluation of their emergent condition. - New Patient This patient is new to me today: Yes Date on this admission: 01/14/20 - Critical Care Critical Care patient: No ATTENDING PHYSICIAN STATEMENT I saw and evaluated the patient. I reviewed the resident's note and discussed the case with the resident. I agree with the resident's findings and plan as documented. SUBJECTIVE: OBJECTIVE: ASSESSMENT AND PLAN:
[2020-01-14] MEDS ORDERED: ALBUTEROL SO4 0.083% IH SOL 2.5 MG/3 ML VIAL.NEB. NEB PRN (06:39)
[2020-01-14] MEDS: INSULIN SLIDING SCALE (NOVOLOG) 1 VIAL SQ SCH ×4 (07:27→22:58)
[2020-01-14] MEDS: SODIUM CHLORIDE 1,000 ML IV SCH ×2 (07:28→22:45)
[2020-01-14] MEDS: ALBUTEROL SO4 2.5/IPRATROPIUM 0.5 INH SOL 3 ML VIAL.NEB. NEB SCH ×3 (08:10→21:00)
[2020-01-14 08:45] LABS: BASO % 0.3 % (0-2.0); EOS % 0.2 % (0-4.5); HEMATOCRIT 41.8 % (32.4-45.2); HEMOGLOBIN 13.1 GM/dL (10.7-15.3); LYMPH % 9.3 % (8-40); MCH 28.3 pg (25.7-33.7); MCHC 31.4 g/dl (32.0-36.0); MEAN CELL VOLUME 90.3 fl (80-96); MEAN PLT VOLUME 7.9 fl (7.5-11.1); MONO % 4.8 % (3.8-10.2); NEUT % 85.4 % (42.8-82.8); PLATELET COUNT 145 K/MM3 (134-434); RBC 4.63 M/mm3 (3.60-5.2); RDW 14.5 % (11.6-15.6); WHITE BLOOD COUNT 23.2 K/mm3 (4.0-10.0)
[2020-01-14 09:08] LABS: ALBUMIN 2.9 g/dl (3.4-5.0); BILIRUBIN,TOTAL 0.6 mg/dL (0.2-1); BLOOD UREA NITROGEN 20.7 mg/dL (7-18); CALCIUM 8.8 mg/dL (8.5-10.1); CREATININE 0.6 mg/dL (0.55-1.3); PHOSPHOROUS 4.1 mg/dL (2.5-4.9); TOT PROT 5.6 g/dl (6.4-8.2)
[2020-01-14] MEDS ORDERED: DEXTROSE 5%-WATER - 50 ML IVPB ONE ×2 (09:15→17:08)
[2020-01-14] MEDS ORDERED: cefTRIAXone SODIUM 1 GM VIAL ONE (09:15)
[2020-01-14] MEDS ORDERED: ENOXAPARIN NA (PORCINE) 60 MG/0.6 ML DISP.SYRIN SQ SCH (10:00)
[2020-01-14] MEDS ORDERED: CEFTRIAXONE 1 GM in DEXTROSE 5%-WATER - 50 ML IVPB SCH (10:00)
[2020-01-14] MEDS ORDERED: DOXYCYCLINE INJECTION 100 MG in DEXTROSE 5%-WATER - 100 ML IVPB SCH (10:00)
[2020-01-14] MEDS: ASPIRIN COATED 81 MG TABLET.EC PO SCH (10:03)
[2020-01-14] MEDS: ENOXAPARIN NA (PORCINE) 60 MG/0.6 ML DISP.SYRIN SQ SCH ×2 (10:03→22:47)
[2020-01-14] MEDS: BUDESONIDE/FORMETEROL FUMARATE 80/4.5 mcg INHALER IH SCH ×2 (10:03→22:47)
[2020-01-14] MEDS: methylPREDNISolone NA SUCC 40 MG/1 ML VIAL IVPUSH SCH ×2 (10:03→18:48)
[2020-01-14] MEDS: PANTOPRAZOLE SODIUM 40 MG VIAL IVPUSH SCH (10:03)
[2020-01-14 11:26] LABS: ANISOCYTOSIS 1+; MACROCYTOSIS 0; OVALOCYTE 1+; PLATELET ESTIMATE DECREASED; TEAR DROP CELLS 1+
--- NOTE | 2020-01-14 11:27 | CON.PULM ---
Consult Consult Specialty:: PULMONARY Referred by:: PMD Reason for Consultation:: H/O LUNG CA - History of Present Illness Chief Complaint: SOB History of Present Illness: This is an 85 y/o female with a PMH of bronchogenic Ca s/p lobectomy, R. lung nodules s/p radiation (2017), HTN, HLD, COPD on 3L [place] BIBA after an unwitnessed fall at home. Per the daughter, the patient got up when she was out of the room to try and walk, and when she came back she found her down on the ground. She fell on her left side, and is complaining of back and left rib pain. Patent is also complaining of abdominal pain, shortness of breath. - History Source History Provided By: Medical Record Limitations to Obtaining History: Clinical Condition - Past Medical History Cardio/Vascular: Yes: HTN, Hyperlipdemia Pulmonary: Yes: Cancer, COPD, O2 Dependent, Pulmonary Fibrosis ...: No Heme/Onc: Yes: Anemia - Alcohol/Substance Use Hx Alcohol Use: No History of Substance Use: reports: None - Smoking History Smoking history: Former smoker Have you smoked in the past 12 months: No If you are a former smoker, when did you quit?: 30years - Social History History of Recent Travel: No Home Medications - Allergies Allergies/Adverse Reactions: Allergies Allergy/AdvReac Type Severity Reaction Status Date / Time azithromycin [From Zithromax] Allergy Verified 02/08/19 15:33 - Home Medications Home Medications: Ambulatory Orders Aspirin [ASA -] 81 mg PO DAILY 02/07/16 Atorvastatin Ca [Lipitor] 20 mg PO HS 02/07/16 Docusate Sodium [Stool Softener] 100 mg PO HS 02/07/16 Budesonide/Formeterol Fumarate [SYMBICORT 80/4.5mcg -] 2 puff IH DAILY 12/17/18 Fluticasone Propionate [Flovent Diskus] 50 mcg IH DAILY MDD 2 puffs 12/17/18 Pantoprazole Sodium [Protonix -] 40 mg PO DAILY 12/17/18 Acetaminophen [Tylenol .Regular Strength -] 650 mg PO Q6H PRN tablet 12/23/18 Calcium 500Mg/Vit-D 200 Units [Os-Hector 500+D -] 2 tab PO DAILY #30 tab 12/23/18 Lubiprostone [Amitiza] 24 mcg PO DAILY PRN 02/08/19 Albuterol 2.5/Ipratropium 0.5 [Duoneb -] 1 neb IH QID 01/14/20 predniSONE [Deltasone -] 15 mg PO DAILY 01/14/20 Family Medical History Family History: Unable to Obtain Review of Systems - Review of Systems Constitutional: reports: Lethargy, Unintentional Wgt. Loss. denies: Chills, Night Sweats HENT: denies: Difficult Swallowing Neck: reports: Decreased ROM Cardiovascular: reports: Palpitations, Shortness of Breath. denies: Chest Pain Respiratory: reports: Exercise Intolerance, SOB on Exertion. denies: Hemoptysis, Wheezing Gastrointestinal: denies: Abdominal Pain Genitourinary: denies: Burning Physical Exam Vital Sings: Vital Signs Temperature 98.3 F 01/14/20 06:25 Pulse Rate 106 H 01/14/20 06:25 Respiratory Rate 24 H 01/14/20 06:25 Blood Pressure 115/64 01/14/20 06:25 O2 Sat by Pulse Oximetry (%) 100 01/14/20 06:17 Constitutional: Yes: Moderate Distress Eyes: Yes: EOM Intact HENT: Yes: Normocephalic Neck: Yes: Trachea Midline Cardiovascular: Yes: Tachycardia, S1, S2 Respiratory: Yes: Rhonchi Gastrointestinal: Yes: Soft Extremities: Yes: Other (RESTRAINED B/L WRISTS) Edema: No Integumentary: Yes: WNL Neurological: Yes: Pre-Existing Deficit Labs: CBC, BMP 01/14/20 08:00 01/14/20 08:00 REST REVIEWED Imaging - Results Chest X-ray: Report Reviewed, Image Reviewed Cat Scan: Report Reviewed, Image Reviewed Problem List - Problems (1) Compression fracture of body of thoracic vertebra Code(s): S22.000A - WEDGE COMPRESSION FRACTURE OF UNSP THORACIC VERTEBRA, INIT (2) Lung cancer Code(s): C34.90 - MALIGNANT NEOPLASM OF UNSP PART OF UNSP BRONCHUS OR LUNG (3) Lung cancer associated cerebellar ataxia Code(s): C34.90 - MALIGNANT NEOPLASM OF UNSP PART OF UNSP BRONCHUS OR LUNG; G32.81 - CEREBELLAR ATAXIA IN DISEASES CLASSIFIED ELSEWHERE (4) Pneumonia Code(s): J18.9 - PNEUMONIA, UNSPECIFIED ORGANISM (5) Radiation fibrosis Code(s): J70.1 - CHRONIC AND OTHER PULMONARY MANIFESTATIONS DUE TO RADIATION Assessment/Plan DUE TO CHRONIC CHANGES ON CT CHEST DIFFICULT TO DETERMINE IF THERE IS A PNEUMONIA PRESENT GIVEN THE FALL AND WEAKNESS/LACTIC ACIDOSIS WOULD PANCULTURE AND CONTINUE EMPIR IC ANTIBIOTIC COVERAGE NOT SURE WHAT ROLE STEROIDS ARE PLAYING/WOULD TAPER CONTINUE O2/BRONCHODILATORS DETERMINE GOALS OF CARE GIVEN AGE AND UNDERLYING POOR PERFORMANCE STATUS WILL FOLLOW Tomi MURPHY MD
--- NOTE | 2020-01-14 11:33 | CON.CARD ---
Consult Consult Specialty:: Cardiology Referred by:: Hospitalist Medicine Reason for Consultation:: Dyspnea, tachycardia, demand ischemia - History of Present Illness Chief Complaint: Dyspnea post fall History of Present Illness: This is an 85 y/o female with a PMH of bronchogenic Ca s/p lobectomy, R. lung nodules s/p radiation (2017), HTN, HLD, COPD on 3L NC BIBA, dementia confused at baseline after an unwitnessed fall at home. Per the daughter, the patient got up when she was out of the room to try and walk, and when she came back she found her down on the ground. She fell on her left side, and is complaining of back and left rib pain. Patent is also complaining of abdominal pain, shortness of breath. On arrival she was tachycardic in the 140's and got Metoprolol 5 mg IV. Lethargic on VM. - History Source History Provided By: Medical Record Limitations to Obtaining History: Clinical Condition - Past Medical History Cardio/Vascular: Yes: HTN, Hyperlipdemia Pulmonary: Yes: Cancer, COPD, O2 Dependent, Pulmonary Fibrosis ...: No - Alcohol/Substance Use Hx Alcohol Use: No History of Substance Use: reports: None - Smoking History Smoking history: Former smoker Have you smoked in the past 12 months: No If you are a former smoker, when did you quit?: 30years - Social History History of Recent Travel: No Home Medications - Allergies Allergies/Adverse Reactions: Allergies Allergy/AdvReac Type Severity Reaction Status Date / Time azithromycin [From Zithromax] Allergy Verified 02/08/19 15:33 - Home Medications Home Medications: Ambulatory Orders Aspirin [ASA -] 81 mg PO DAILY 02/07/16 Atorvastatin Ca [Lipitor] 20 mg PO HS 02/07/16 Docusate Sodium [Stool Softener] 100 mg PO HS 02/07/16 Budesonide/Formeterol Fumarate [SYMBICORT 80/4.5mcg -] 2 puff IH DAILY 12/17/18 Fluticasone Propionate [Flovent Diskus] 50 mcg IH DAILY MDD 2 puffs 12/17/18 Pantoprazole Sodium [Protonix -] 40 mg PO DAILY 12/17/18 Acetaminophen [Tylenol .Regular Strength -] 650 mg PO Q6H PRN tablet 12/23/18 Calcium 500Mg/Vit-D 200 Units [Os-Hector 500+D -] 2 tab PO DAILY #30 tab 12/23/18 Lubiprostone [Amitiza] 24 mcg PO DAILY PRN 02/08/19 Albuterol 2.5/Ipratropium 0.5 [Duoneb -] 1 neb IH QID 01/14/20 predniSONE [Deltasone -] 15 mg PO DAILY 01/14/20 Family Medical History Family History: Unable to Obtain Review of Systems - Review of Systems Constitutional: reports: Lethargy Neurological: reports: Confusion Vital Signs: Vital Signs Temperature 98.3 F 01/14/20 06:25 Pulse Rate 106 H 01/14/20 06:25 Respiratory Rate 24 H 01/14/20 06:25 Blood Pressure 115/64 01/14/20 06:25 O2 Sat by Pulse Oximetry (%) 100 01/14/20 06:17 Constitutional: Yes: No Distress, Calm, Thin Neck: Yes: Supple Respiratory: Yes: Diminished, On Venti-Mask Gastrointestinal: Yes: Soft, Hypoactive Bowel Sounds Cardiovascular: Yes: Tachycardia JVD: No Carotid Bruit: No Heart Sounds: Yes: S1, S2 Murmur: Yes: Systolic Murmur, Grade 1 Edema: No - Other Data Labs, Other Data: CBC, BMP 01/14/20 08:00 01/14/20 08:00 INR, PTT INR 1.03 (0.83-1.09) 01/13/20 22:00 Troponin, BNP 01/13/20 01/14/20 01/14/20 22:00 01:30 08:00 Troponin I 0.12 H 0.38 H 0.20 H Troponin, BNP 01/13/20 01/14/20 01/14/20 22:00 01:30 08:00 Troponin I 0.12 H 0.38 H 0.20 H NSR @ 93 c/w previous 01/13/2020, HR has decreased Tele: SR Problem List - Problems (1) Compression fracture of body of thoracic vertebra Code(s): S22.000A - WEDGE COMPRESSION FRACTURE OF UNSP THORACIC VERTEBRA, INIT (2) Dyspnea Code(s): R06.00 - DYSPNEA, UNSPECIFIED Qualifiers: Dyspnea type: shortness of breath Qualified Code(s): R06.02 - Shortness of breath; R06.00 - Dyspnea, unspecified; R06.01 - Orthopnea (3) HLD (hyperlipidemia) Code(s): E78.5 - HYPERLIPIDEMIA, UNSPECIFIED Qualifiers: Hyperlipidemia type: pure hypercholesterolemia Qualified Code(s): E78.00 - Pure hypercholesterolemia, unspecified; E78.0 - Pure hypercholesterolemia (4) HTN (hypertension) Code(s): I10 - ESSENTIAL (PRIMARY) HYPERTENSION Qualifiers: Hypertension type: essential hypertension Qualified Code(s): I10 - Essential (primary) hypertension (5) Lung cancer Code(s): C34.90 - MALIGNANT NEOPLASM OF UNSP PART OF UNSP BRONCHUS OR LUNG (6) Pneumonia Code(s): J18.9 - PNEUMONIA, UNSPECIFIED ORGANISM (7) Radiation fibrosis Code(s): J70.1 - CHRONIC AND OTHER PULMONARY MANIFESTATIONS DUE TO RADIATION (8) Emphysema lung Code(s): J43.9 - EMPHYSEMA, UNSPECIFIED Qualifiers: Emphysema type: panlobular Qualified Code(s): J43.1 - Panlobular emphysema Assessment/Plan -CTH: prelim::neg acute. Opacification of the b/l mastoid air cells as well as a part of the Left middle ear canal. -CT A/P w/ contrast:: no bowel obstruction. Some colonic diverticula, neg diverticulitis or colitis. Gallstones in the GB. Multiple liver lesions that have the appearance of cyst. Multiple uterine masses, some have appearance of calcified fibroids, but some are indeterminate. -CT Lspine: mild compression fracture of the superior endplate of T12, less than 50% loss of height. Slight anterolithesis of L5 on S1, likely degenerative. Sclerotic foci in the L2 vertebral body -CT chest w/wo contrast: advanced emphysematous changes, multiple b/l blebs. Infiltrate and atelectasis in the RIght upper lobe. Infiltrates in the lower lobes. Healing Left rib fractures -CT Tspine: multiple compression fractures of T8, T9, T12 of age indeterminate. T5 compression fracture w/ verteboplasty 1. Sinus tachycardia referable to pulmonary process 2. Home O2 and steroid dependent COPD/ILD/radiation fibrosis, r/o PNA 3. Demand ischemia, trops downtrending 4. Compression fractures 5. Post-mechanical fall 6. HTN 7. Hyperlipidemia P:1. Empiric abx per C&S, BD, oral steroid taper with GI protection, trend lactate levels, FIO2 as needed, DVT prophylaxis, r/o COVID 19 2. F/u echo 3. Continue ASA 81 qd, Lipitor 20 qhs, trial of Cardizem CD 120 qd as h emodynamics tolerate 4. Goals of care, thank you for consultative opportunity
--- NOTE | 2020-01-14 13:52 | CON.ID ---
Consult Consult Specialty:: infectious diseases Referred by:: sepsis,resp failure,confusion Reason for Consultation:: sepsis - History of Present Illness Chief Complaint: resp failure History of Present Illness: history obtained from the charts as patient is very restless confused and on face mask now looks very sob 85F w/ pmh of bronchogenic Ca s/p lobectomy(last rad tx April 2018; onc Dr. Bubba Moreau), R. lung nodules s/p radiation (2017), HTN, HLD, COPD on 3L home O2, dementia NC BIBA after unwtinessed fall at home. Found down on Left-side. No LOC at that time. At [facility], had multifocal complaint of pain to the Left chest wall, chest, and abd. Reportedly, pt was alert and somewhat oriented. Pt was displaying agitation in the ED, so received Ativan 1mg. - History Source History Provided By: Medical Record Limitations to Obtaining History: Clinical Condition - Past Medical History Cardio/Vascular: Yes: HTN, Hyperlipdemia Pulmonary: Yes: Cancer, COPD, O2 Dependent, Pulmonary Fibrosis ...: No - Alcohol/Substance Use Hx Alcohol Use: No History of Substance Use: reports: None - Smoking History Smoking history: Former smoker Have you smoked in the past 12 months: No If you are a former smoker, when did you quit?: 30years - Social History History of Recent Travel: No Home Medications - Allergies Allergies/Adverse Reactions: Allergies Allergy/AdvReac Type Severity Reaction Status Date / Time azithromycin [From Zithromax] Allergy Verified 02/08/19 15:33 - Home Medications Home Medications: Ambulatory Orders Aspirin [ASA -] 81 mg PO DAILY 02/07/16 Atorvastatin Ca [Lipitor] 20 mg PO HS 02/07/16 Docusate Sodium [Stool Softener] 100 mg PO HS 02/07/16 Budesonide/Formeterol Fumarate [SYMBICORT 80/4.5mcg -] 2 puff IH DAILY 12/17/18 Fluticasone Propionate [Flovent Diskus] 50 mcg IH DAILY MDD 2 puffs 12/17/18 Pantoprazole Sodium [Protonix -] 40 mg PO DAILY 12/17/18 Acetaminophen [Tylenol .Regular Strength -] 650 mg PO Q6H PRN tablet 12/23/18 Calcium 500Mg/Vit-D 200 Units [Os-Hector 500+D -] 2 tab PO DAILY #30 tab 12/23/18 Lubiprostone [Amitiza] 24 mcg PO DAILY PRN 02/08/19 Albuterol 2.5/Ipratropium 0.5 [Duoneb -] 1 neb IH QID 01/14/20 predniSONE [Deltasone -] 15 mg PO DAILY 01/14/20 Family Medical History Family History: Unable to Obtain Review of Systems Unable to obtain ROS, reason: unable to obtain Physical Exam Vital Signs: Vital Signs Temperature 98.7 F 01/14/20 10:00 Pulse Rate 120 H 01/14/20 10:00 Respiratory Rate 24 H 01/14/20 10:00 Blood Pressure 119/78 01/14/20 10:00 O2 Sat by Pulse Oximetry (%) 95 01/14/20 10:00 Constitutional: Yes: Moderate Distress, Other (restless) HENT: Yes: Atraumatic, Normocephalic Neck: Yes: Supple Cardiovascular: Yes: Tachycardia, S1 Respiratory: Yes: On Venti-Mask, Poor Air Entry, Other Gastrointestinal: Yes: Normal Bowel Sounds, Soft Musculoskeletal: Yes: WNL Extremities: Yes: WNL Neurological: Yes: Confusion, Other (in restraines) Labs: CBC, BMP 01/14/20 08:00 01/14/20 08:00 Imaging - Results Chest X-ray: Report Reviewed, Image Reviewed Cat Scan: Report Reviewed, Image Reviewed Assessment/Plan Problem List - Problems (1) Compression fracture of body of thoracic vertebra Code(s): S22.000A - WEDGE COMPRESSION FRACTURE OF UNSP THORACIC VERTEBRA, INIT (2) Lung cancer Code(s): C34.90 - MALIGNANT NEOPLASM OF UNSP PART OF UNSP BRONCHUS OR LUNG (3) Lung cancer associated cerebellar ataxia Code(s): C34.90 - MALIGNANT NEOPLASM OF UNSP PART OF UNSP BRONCHUS OR LUNG; G32.81 - CEREBELLAR ATAXIA IN DISEASES CLASSIFIED ELSEWHERE (4) Pneumonia Code(s): J18.9 - PNEUMONIA, UNSPECIFIED ORGANISM (5) Radiation fibrosis Code(s): J70.1 - CHRONIC AND OTHER PULMONARY MANIFESTATIONS DUE TO RADIATION Assessment/Plan will start on empiric abx coverage await for all test results resp support pul on board close watch prognosis does not look good
[2020-01-14] MEDS ORDERED: PT OWN MED DRAWER 7, Y5N ONE (14:50)
[2020-01-14] MEDS ORDERED: PIPERACILLIN/TAZOBACTAM 3.375 GM VIAL IVPB ONE (17:08)
[2020-01-14] MEDS: PIPERACILLIN/TAZOB 3.375 GM 3.375 GM in DEXTROSE 5%-WATER - 50 ML IVPB SCH (18:48)
--- NOTE | 2020-01-14 19:39 | PN ---
Progress Note (short form) - Note Progress Note: Seen and examined at bedside with son present. on 100% non rebreather. DNR but ok to intubate. son wanted morphine but I explained it could cause respiratory depression. He spoke to his sister as they both are healthcare proxies and they decided patient is DNR/DNI now. MOLST filled out. patient has been declining over last few months. on exam awake and altered. AAOx0. Moderate respiratory distress RRR bilateral rhonchi. tachypenic ABD soft non tender non distended Goals of care planning time 35 minutes Please see H&P from this Am for further information Visit type - Emergency Visit Emergency Visit: Yes ED Registration Date: 01/14/20 Care time: The patient presented to the Emergency Department on the above date and was hospitalized for further evaluation of their emergent condition. - New Patient This patient is new to me today: Yes Date on this admission: 01/14/20 - Critical Care Critical Care patient: No - Medication Review Med list reviewed for High Risk Meds patients 65 and older: Yes
[2020-01-14] MEDS ORDERED: DOXYCYCLINE HYCLATE 100 MG VIAL ONE (19:51)
[2020-01-14] MEDS ORDERED: DEXTROSE 5%-WATER 100 ML IVPB ONE (19:53)
[2020-01-14] MEDS: MORPHINE SULFATE 2 MG/ML VIAL IVPUSH PRN ×2 (20:05→23:24)
[2020-01-14] MEDS: DOXYCYCLINE INJECTION 100 MG in DEXTROSE 5%-WATER 100 ML IVPB SCH (22:46)
[2020-01-15] MEDS ORDERED: DEXTROSE 5%-WATER - 50 ML IVPB ONE ×3 (03:20→17:15)
[2020-01-15] MEDS ORDERED: PIPERACILLIN/TAZOBACTAM 3.375 GM VIAL IVPB ONE ×3 (03:20→17:15)
[2020-01-15] MEDS: methylPREDNISolone NA SUCC 40 MG/1 ML VIAL IVPUSH SCH ×3 (03:36→17:21)
[2020-01-15] MEDS: PIPERACILLIN/TAZOB 3.375 GM 3.375 GM in DEXTROSE 5%-WATER - 50 ML IVPB SCH ×3 (03:36→17:21)
[2020-01-15] MEDS: MORPHINE SULFATE 2 MG/ML VIAL IVPUSH PRN ×6 (05:25→23:46)
[2020-01-15] MEDS: INSULIN SLIDING SCALE (NOVOLOG) 1 VIAL SQ SCH ×3 (06:26→17:07)
[2020-01-15] MEDS: ALBUTEROL SO4 2.5/IPRATROPIUM 0.5 INH SOL 3 ML VIAL.NEB. NEB SCH ×5 (07:33→20:45)
[2020-01-15] MEDS ORDERED: DOXYCYCLINE HYCLATE 100 MG VIAL ONE ×2 (09:05→21:23)
[2020-01-15] MEDS ORDERED: DEXTROSE 5%-WATER 100 ML IVPB ONE ×2 (09:05→21:23)
[2020-01-15] MEDS: ASPIRIN COATED 81 MG TABLET.EC PO SCH (09:16)
[2020-01-15] MEDS: PANTOPRAZOLE SODIUM 40 MG VIAL IVPUSH SCH (09:30)
[2020-01-15] MEDS: ENOXAPARIN NA (PORCINE) 60 MG/0.6 ML DISP.SYRIN SQ SCH (09:31)
[2020-01-15] MEDS: DOXYCYCLINE INJECTION 100 MG in DEXTROSE 5%-WATER 100 ML IVPB SCH ×2 (10:19→22:09)
[2020-01-15] MEDS: BUDESONIDE/FORMETEROL FUMARATE 80/4.5 mcg INHALER IH SCH ×2 (10:22→22:07)
--- NOTE | 2020-01-15 11:27 | PN ---
Progress Note (short form) - Note Progress Note: PULMONARY DNR/DNI CONTINUES TO DETERIORATE Constitutional: Yes: Moderate Distress Eyes: Yes: EOM Intact HENT: Yes: Normocephalic Neck: Yes: Trachea Midline Cardiovascular: Yes: Tachycardia, S1, S2 Respiratory: Yes: Rhonchi Gastrointestinal: Yes: Soft Extremities: Yes: Other (RESTRAINED B/L WRISTS) Edema: No Integumentary: Yes: WNL Neurological: Yes: Pre-Existing Deficit Labs: NOTED Chest X-ray: Report Reviewed, Image Reviewed Cat Scan: Report Reviewed, Image Reviewed Problem List - Problems (1) Compression fracture of body of thoracic vertebra Code(s): S22.000A - WEDGE COMPRESSION FRACTURE OF UNSP THORACIC VERTEBRA, INIT (2) Lung cancer Code(s): C34.90 - MALIGNANT NEOPLASM OF UNSP PART OF UNSP BRONCHUS OR LUNG (3) Lung cancer associated cerebellar ataxia Code(s): C34.90 - MALIGNANT NEOPLASM OF UNSP PART OF UNSP BRONCHUS OR LUNG; G32.81 - CEREBELLAR ATAXIA IN DISEASES CLASSIFIED ELSEWHERE (4) Pneumonia Code(s): J18.9 - PNEUMONIA, UNSPECIFIED ORGANISM (5) Radiation fibrosis Code(s): J70.1 - CHRONIC AND OTHER PULMONARY MANIFESTATIONS DUE TO RADIATION CONTINUE EMPIRIC ANTIBIOTIC COVERAGE CONTINUE O2/BRONCHODILATORS AGREE WITH DNR/DNI COMFORT MEASURES PLEASE CALL NEEDED Tomi MURPHY MD Problem List - Problems (1) Compression fracture of body of thoracic vertebra Code(s): S22.000A - WEDGE COMPRESSION FRACTURE OF UNSP THORACIC VERTEBRA, INIT (2) Lung cancer Code(s): C34.90 - MALIGNANT NEOPLASM OF UNSP PART OF UNSP BRONCHUS OR LUNG Qualifiers: Laterality: unspecified laterality Lung location: unspecified part of lung Qualified Code(s): C34.90 - Malignant neoplasm of unspecified part of unspecified bronchus or lung (3) Lung cancer associated cerebellar ataxia Code(s): C34.90 - MALIGNANT NEOPLASM OF UNSP PART OF UNSP BRONCHUS OR LUNG; G32.81 - CEREBELLAR ATAXIA IN DISEASES CLASSIFIED ELSEWHERE (4) Pneumonia Code(s): J18.9 - PNEUMONIA, UNSPECIFIED ORGANISM Qualifiers: Qualified Code(s): J18.9 - Pneumonia, unspecified organism (5) Radiation fibrosis Code(s): J70.1 - CHRONIC AND OTHER PULMONARY MANIFESTATIONS DUE TO RADIATION
[2020-01-15] MEDS ORDERED: INSULIN (NOVOLOG) ASPART 100 UNITS/ML 10ML VIAL ONE (11:40)
--- NOTE | 2020-01-15 12:20 | PN ---
Progress Note, Physician History of Present Illness: Lethargic on VM. - Current Medication List Current Medications: Active Medications Albuterol Sulfate (Ventolin 0.083% Nebulizer Soln -) 1 amp NEB Q6H PRN PRN Reason: SHORT OF BREATH/WHEEZING Albuterol/Ipratropium (Duoneb -) 1 amp NEB RQID [facility] Last Admin: 01/15/20 08:04 Dose: Not Given Documented by: Aspirin (Ecotrin -) 81 mg PO DAILY [facility] Last Admin: 01/15/20 09:16 Dose: Not Given Documented by: Budesonide/Formoterol Fumarate (Symbicort 80/4.5mcg -) 2 puff IH BID [facility]1983 Last Admin: 01/15/20 10:22 Dose: Not Given Documented by: Enoxaparin Sodium (Lovenox -) 60 mg SQ BID [facility] Last Admin: 01/15/20 09:31 Dose: 60 mg Documented by: Sodium Chloride (Normal Saline -) 1,000 mls @ 75 mls/hr IV ASDIR [facility] Last Admin: 01/14/20 22:45 Dose: 75 mls/hr Documented by: Doxycycline Hyclate 100 mg/ (Dextrose) 100 mls @ 100 mls/hr IVPB BID [facility] Last Admin: 01/15/20 10:19 Dose: 100 mls/hr Documented by: Piperacillin Sod/Tazobactam (Sod 3.375 gm/ Dextrose) 50 mls @ 100 mls/hr IVPB Q8H-IV [facility], [facility]; Protocol Last Admin: 01/15/20 09:30 Dose: 100 mls/hr Documented by: Insulin Aspart (Novolog Vial Sliding Scale -) 1 vial SQ ACHS [facility], [facility]; Protocol Last Admin: 01/15/20 11:43 Dose: 2 units Documented by: Methylprednisolone Sodium Succinate (Solu-Medrol -) 40 mg IVPUSH Q8H-IV [facility] Last Admin: 01/15/20 09:30 Dose: 40 mg Documented by: Morphine Sulfate (Morphine Sulfate) 2 mg IVPUSH Q3H PRN PRN Reason: PAIN LEVEL 1-5 Last Admin: 01/15/20 09:44 Dose: 2 mg Documented by: Pantoprazole Sodium (Protonix Iv) 40 mg IVPUSH DAILY [facility] Last Admin: 01/15/20 09:30 Dose: 40 mg Documented by: - Objective Vital Signs: Vital Signs Temperature 97.1 F L 01/15/20 09:49 Pulse Rate 109 H 01/15/20 09:49 Respiratory Rate 26 H 01/15/20 09:49 Blood Pressure 137/79 01/15/20 09:49 O2 Sat by Pulse Oximetry (%) 100 01/15/20 09:49 Constitutional: Yes: Anxious, Mild Distress Cardiovascular: Yes: Regular Rate and Rhythm Respiratory: Yes: On Venti-Mask, Rales, SOB Gastrointestinal: Yes: Soft, Hypoactive Bowel Sounds Edema: No Labs: CBC, BMP 01/14/20 08:00 01/14/20 08:00 INR, PTT INR 1.03 (0.83-1.09) 01/13/20 22:00 - ....Imaging EKG: Report Reviewed (Tele NSR) Problem List - Problems (1) Compression fracture of body of thoracic vertebra Code(s): S22.000A - WEDGE COMPRESSION FRACTURE OF UNSP THORACIC VERTEBRA, INIT (2) Dyspnea Code(s): R06.00 - DYSPNEA, UNSPECIFIED Qualifiers: Dyspnea type: shortness of breath Qualified Code(s): R06.02 - Shortness of breath; R06.00 - Dyspnea, unspecified; R06.01 - Orthopnea (3) HLD (hyperlipidemia) Code(s): E78.5 - HYPERLIPIDEMIA, UNSPECIFIED Qualifiers: Hyperlipidemia type: pure hypercholesterolemia Qualified Code(s): E78.00 - Pure hypercholesterolemia, unspecified; E78.0 - Pure hypercholesterolemia (4) HTN (hypertension) Code(s): I10 - ESSENTIAL (PRIMARY) HYPERTENSION Qualifiers: Hypertension type: essential hypertension Qualified Code(s): I10 - Essential (primary) hypertension (5) Lung cancer Code(s): C34.90 - MALIGNANT NEOPLASM OF UNSP PART OF UNSP BRONCHUS OR LUNG Qualifiers: Laterality: unspecified laterality Lung location: unspecified part of lung Qualified Code(s): C34.90 - Malignant neoplasm of unspecified part of un specified bronchus or lung (6) Pneumonia Code(s): J18.9 - PNEUMONIA, UNSPECIFIED ORGANISM Qualifiers: Qualified Code(s): J18.9 - Pneumonia, unspecified organism (7) Radiation fibrosis Code(s): J70.1 - CHRONIC AND OTHER PULMONARY MANIFESTATIONS DUE TO RADIATION (8) Emphysema lung Code(s): J43.9 - EMPHYSEMA, UNSPECIFIED Qualifiers: Emphysema type: panlobular Qualified Code(s): J43.1 - Panlobular emphysema Assessment/Plan -CTH: prelim::neg acute. Opacification of the b/l mastoid air cells as well as a part of the Left middle ear canal. -CT A/P w/ contrast:: no bowel obstruction. Some colonic diverticula, neg diverticulitis or colitis. Gallstones in the GB. Multiple liver lesions that have the appearance of cyst. Multiple uterine masses, some have appearance of calcified fibroids, but some are indeterminate. -CT Lspine: mild compression fracture of the superior endplate of T12, less than 50% loss of height. Slight anterolithesis of L5 on S1, likely degenerative. Sclerotic foci in the L2 vertebral body -CT chest w/wo contrast: advanced emphysematous changes, multiple b/l blebs. Infiltrate and atelectasis in the RIght upper lobe. Infiltrates in the lower lobes. Healing Left rib fractures -CT Tspine: multiple compression fractures of T8, T9, T12 of age indeterminate. T5 compression fracture w/ verteboplasty 1. Sinus tachycardia referable to pulmonary process 2. Home O2 and steroid dependent COPD/ILD/radiation fibrosis, r/o PNA 3. Demand ischemia, trops downtrending 4. Compression fractures 5. Post-mechanical fall 6. HTN 7. Hyperlipidemia P:1. Empiric abx per C&S, BD, IV steroid with GI protection, trend lactate levels, FIO2 as needed, DVT prophylaxis, COVID 19 negative 2. F/u echo 3. Continue ASA 81 qd, trial of Cardizem CD 120 qd as hemodynamics tolerate if taking orals 4. Goals of care to be addressed, thank you for consultative opportunity
--- NOTE | 2020-01-15 12:46 | PN ---
Progress Note, Physician History of Present Illness: lethargic on venti mask non responsive - Current Medication List Current Medications: Active Medications Albuterol Sulfate (Ventolin 0.083% Nebulizer Soln -) 1 amp NEB Q6H PRN PRN Reason: SHORT OF BREATH/WHEEZING Albuterol/Ipratropium (Duoneb -) 1 amp NEB RQID [facility] Last Admin: 01/15/20 08:04 Dose: Not Given Documented by: Aspirin (Ecotrin -) 81 mg PO DAILY [facility] Last Admin: 01/15/20 09:16 Dose: Not Given Documented by: Budesonide/Formoterol Fumarate (Symbicort 80/4.5mcg -) 2 puff IH BID [facility] Last Admin: 01/15/20 10:22 Dose: Not Given Documented by: Enoxaparin Sodium (Lovenox -) 60 mg SQ BID [facility] Last Admin: 01/15/20 09:31 Dose: 60 mg Documented by: Sodium Chloride (Normal Saline -) 1,000 mls @ 75 mls/hr IV ASDIR [facility] Last Admin: 01/14/20 22:45 Dose: 75 mls/hr Documented by: Doxycycline Hyclate 100 mg/ (Dextrose) 100 mls @ 100 mls/hr IVPB BID [facility] Last Admin: 01/15/20 10:19 Dose: 100 mls/hr Documented by: Piperacillin Sod/Tazobactam (Sod 3.375 gm/ Dextrose) 50 mls @ 100 mls/hr IVPB Q8H-IV [facility]; Protocol Last Admin: 01/15/20 09:30 Dose: 100 mls/hr Documented by: Insulin Aspart (Novolog Vial Sliding Scale -) 1 vial SQ ACHS [facility]; Protocol Last Admin: 01/15/20 11:43 Dose: 2 units Documented by: Methylprednisolone Sodium Succinate (Solu-Medrol -) 40 mg IVPUSH Q8H-IV [facility] Last Admin: 01/15/20 09:30 Dose: 40 mg Documented by: Morphine Sulfate (Morphine Sulfate) 2 mg IVPUSH Q3H PRN PRN Reason: PAIN LEVEL 1-5 Last Admin: 01/15/20 09:44 Dose: 2 mg Documented by: Pantoprazole Sodium (Protonix Iv) 40 mg IVPUSH DAILY [facility] Last Admin: 01/15/20 09:30 Dose: 40 mg Documented by: - Objective Vital Signs: Vital Signs Temperature 97.1 F L 01/15/20 09:49 Pulse Rate 109 H 01/15/20 09:49 Respiratory Rate 26 H 01/15/20 09:49 Blood Pressure 137/79 01/15/20 09:49 O2 Sat by Pulse Oximetry (%) 100 01/15/20 09:49 Constitutional: Yes: Other Cardiovascular: Yes: Tachycardia, S1, S2 Respiratory: Yes: On Venti-Mask, Poor Air Entry, Rhonchi Gastrointestinal: Yes: Normal Bowel Sounds, Soft Musculoskeletal: Yes: WNL Extremities: Yes: WNL Neurological: Yes: Alert, Oriented Labs: CBC, BMP 01/14/20 08:00 01/14/20 08:00 INR, PTT INR 1.03 (0.83-1.09) 01/13/20 22:00 Assessment/Plan Problem List - Problems (1) Compression fracture of body of thoracic vertebra Code(s): S22.000A - WEDGE COMPRESSION FRACTURE OF UNSP THORACIC VERTEBRA, INIT (2) Lung cancer Code(s): C34.90 - MALIGNANT NEOPLASM OF UNSP PART OF UNSP BRONCHUS OR LUNG (3) Lung cancer associated cerebellar ataxia Code(s): C34.90 - MALIGNANT NEOPLASM OF UNSP PART OF UNSP BRONCHUS OR LUNG; G32. 81 - CEREBELLAR ATAXIA IN DISEASES CLASSIFIED ELSEWHERE (4) Pneumonia Code(s): J18.9 - PNEUMONIA, UNSPECIFIED ORGANISM (5) Radiation fibrosis Code(s): J70.1 - CHRONIC AND OTHER PULMONARY MANIFESTATIONS DUE TO RADIATION 6 leukocytosis Assessment/Plan continue abx monitor wbc resp support rest as per the team
[2020-01-15] MEDS: SODIUM CHLORIDE 1,000 ML IV SCH ×2 (13:38→14:45)
--- NOTE | 2020-01-15 16:25 | PN ---
Progress Note, Physician History of Present Illness: seen and examined at bedside with daughter present and son on speaker phone. She seems more comfortable today. Knows she is in the hospital. No fever chills chest pain or any discomfort. ROS limited due to patient's toxic/metabolic encephalopathy.on 100% non rebreather saturating 100%. - Current Medication List Current Medications: Active Medications Albuterol Sulfate (Ventolin 0.083% Nebulizer Soln -) 1 amp NEB Q6H PRN PRN Reason: SHORT OF BREATH/WHEEZING Albuterol/Ipratropium (Duoneb -) 1 amp NEB RQID [facility] Last Admin: 01/15/20 12:36 Dose: 1 amp Documented by: Aspirin (Ecotrin -) 81 mg PO DAILY [facility] Last Admin: 01/15/20 09:16 Dose: Not Given Documented by: Budesonide/Formoterol Fumarate (Symbicort 80/4.5mcg -) 2 puff IH BID [facility] Last Admin: 01/15/20 10:22 Dose: Not Given Documented by: Enoxaparin Sodium (Lovenox -) 60 mg SQ BID [facility] Last Admin: 01/15/20 09:31 Dose: 60 mg Documented by: Doxycycline Hyclate 100 mg/ (Dextrose) 100 mls @ 100 mls/hr IVPB BID [facility] Last Admin: 01/15/20 10:19 Dose: 100 mls/hr Documented by: Piperacillin Sod/Tazobactam (Sod 3.375 gm/ Dextrose) 50 mls @ 100 mls/hr IVPB Q8H-IV [facility]; Protocol Last Admin: 01/15/20 09:30 Dose: 100 mls/hr Documented by: Sodium Chloride (Normal Saline -) 1,000 mls @ 30 mls/hr IV ASDIR [facility] Last Admin: 01/15/20 14:45 Dose: Not Given Documented by: Insulin Aspart (Novolog Vial Sliding Scale -) 1 vial SQ ACHS [facility]; Protocol Last Admin: 01/15/20 11:43 Dose: 2 units Documented by: Methylprednisolone Sodium Succinate (Solu-Medrol -) 40 mg IVPUSH Q8H-IV [facility] Last Admin: 01/15/20 09:30 Dose: 40 mg Documented by: Morphine Sulfate (Morphine Sulfate) 2 mg IVPUSH Q3H PRN PRN Reason: PAIN LEVEL 1-5 Last Admin: 01/15/20 13:34 Dose: 2 mg Documented by: Pantoprazole Sodium (Protonix Iv) 40 mg IVPUSH DAILY [facility] Last Admin: 01/15/20 09:30 Dose: 40 mg Documented by: - Objective Vital Signs: Vital Signs Temperature 97.5 F L 01/15/20 14:23 Pulse Rate 112 H 01/15/20 14:23 Respiratory Rate 23 H 01/15/20 14:23 Blood Pressure 129/81 01/15/20 14:23 O2 Sat by Pulse Oximetry (%) 100 01/15/20 09:49 Constitutional: Yes: Calm, Mild Distress (respiratory distress) Eyes: Yes: EOM Intact, PERRL HENT: Yes: Atraumatic Neck: Yes: Other (dry oral mucosa) Cardiovascular: Yes: Regular Rate and Rhythm Respiratory: Yes: Rhonchi (left more than right) Gastrointestinal: Yes: Soft. No: Tenderness Edema: Yes Edema: LLE: Trace, RLE: Trace Neurological: Yes: Oriented (to place and self. Tired and ill appearing but easily aroused), Confusion, Weakness Labs: CBC, BMP 01/14/20 08:00 01/14/20 08:00 INR, PTT INR 1.03 (0.83-1.09) 01/13/20 22:00 Impression/Plan Impression/Plan: 85F with multiple medical problems presents s/p fall at home after standing on her own. She is bed bound at baseline. 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 Discontinue ABx but will discuss with ID first morphine PRN fr tachypnea and comfort titrate off 100% FiO2 continue medrol continue BD leukocytosis from steroids which she is on chronically SW/CM for home hospice family asked me to call Dr. Lindquist who is the patient's service desk analyst and close family friend. He agrees with all management and plans of care. Visit type - Emergency Visit Emergency Visit: Yes ED Registration Date: 01/14/20 Care time: The patient presented to the Emergency Department on the above date and was hospitalized for further evaluation of their emergent condition. - New Patient This patient is new to me today: No - Critical Care Critical Care patient: No - Medication Review Med list reviewed for High Risk Meds patients 65 and older: Yes
[2020-01-16] MEDS ORDERED: PIPERACILLIN/TAZOBACTAM 3.375 GM VIAL IVPB ONE ×3 (01:17→17:14)
[2020-01-16] MEDS: methylPREDNISolone NA SUCC 40 MG/1 ML VIAL IVPUSH SCH ×3 (01:45→17:35)
[2020-01-16] MEDS: PIPERACILLIN/TAZOB 3.375 GM 3.375 GM in DEXTROSE 5%-WATER - 50 ML IVPB SCH ×3 (02:58→17:35)
[2020-01-16] MEDS ORDERED: ACETAMINOPHEN 1000 MG/100 ML VIAL (NON FORMULARY) IVPB ONE (03:32)
[2020-01-16] MEDS: MORPHINE SULFATE 2 MG/ML VIAL IVPUSH PRN ×4 (05:45→20:28)
[2020-01-16] MEDS: ALBUTEROL SO4 2.5/IPRATROPIUM 0.5 INH SOL 3 ML VIAL.NEB. NEB SCH ×4 (08:07→20:18)
[2020-01-16] MEDS ORDERED: DEXTROSE 5%-WATER 100 ML IVPB ONE ×2 (09:33→21:50)
[2020-01-16] MEDS ORDERED: DOXYCYCLINE HYCLATE 100 MG VIAL ONE ×2 (09:33→21:50)
[2020-01-16] MEDS ORDERED: DEXTROSE 5%-WATER - 50 ML IVPB ONE ×2 (09:34→17:15)
[2020-01-16] MEDS: ENOXAPARIN NA (PORCINE) 40 MG/0.4 ML DISP.SYRIN SQ SCH (09:44)
[2020-01-16] MEDS: PANTOPRAZOLE SODIUM 40 MG VIAL IVPUSH SCH (09:44)
[2020-01-16] MEDS: DOXYCYCLINE INJECTION 100 MG in DEXTROSE 5%-WATER 100 ML IVPB SCH ×2 (09:45→21:58)
[2020-01-16] MEDS: ASPIRIN COATED 81 MG TABLET.EC PO SCH (09:46)
[2020-01-16] MEDS: BUDESONIDE/FORMETEROL FUMARATE 80/4.5 mcg INHALER IH SCH ×2 (09:46→22:03)
--- NOTE | 2020-01-16 09:52 | PN ---
Progress Note, Physician Chief Complaint: Events noted On 100 % NRB Lethargic History of Present Illness: Patient was seen and examined. Lethargic. Chart was reviewed Tachypneic - Current Medication List Current Medications: Active Medications Albuterol Sulfate (Ventolin 0.083% Nebulizer Soln -) 1 amp NEB Q6H PRN PRN Reason: SHORT OF BREATH/WHEEZING Albuterol/Ipratropium (Duoneb -) 1 amp NEB RQID [facility] Last Admin: 01/16/20 08:07 Dose: 1 amp Documented by: Aspirin (Ecotrin -) 81 mg PO DAILY [facility] Last Admin: 01/16/20 09:46 Dose: Not Given Documented by: Budesonide/Formoterol Fumarate (Symbicort 80/4.5mcg -) 2 puff IH BID [facility] Last Admin: 01/16/20 09:46 Dose: Not Given Documented by: Enoxaparin Sodium (Lovenox -) 40 mg SQ DAILY [facility] Last Admin: 01/16/20 09:44 Dose: 40 mg Documented by: Doxycycline Hyclate 100 mg/ (Dextrose) 100 mls @ 100 mls/hr IVPB BID [facility] Last Admin: 01/16/20 09:45 Dose: 100 mls/hr Documented by: Piperacillin Sod/Tazobactam (Sod 3.375 gm/ Dextrose) 50 mls @ 100 mls/hr IVPB Q8H-IV [facility]; Protocol Last Admin: 01/16/20 09:44 Dose: 100 mls/hr Documented by: Sodium Chloride (Normal Saline -) 1,000 mls @ 30 mls/hr IV ASDIR [facility] Last Admin: 01/15/20 14:45 Dose: Not Given Documented by: Methylprednisolone Sodium Succinate (Solu-Medrol -) 40 mg IVPUSH Q8H-IV [facility] Last Admin: 01/16/20 09:44 Dose: 40 mg Documented by: Morphine Sulfate (Morphine Sulfate) 2 mg IVPUSH Q3H PRN PRN Reason: PAIN LEVEL 1-5 Last Admin: 01/16/20 08:55 Dose: 2 mg Documented by: Pantoprazole Sodium (Protonix Iv) 40 mg IVPUSH DAILY [facility] Last Admin: 01/16/20 09:44 Dose: 40 mg Documented by: - Objective Vital Signs: Vital Signs Temperature 97.8 F 01/16/20 06:00 Pulse Rate 127 H 01/16/20 06:00 Respiratory Rate 22 H 01/16/20 06:00 Blood Pressure 136/78 01/16/20 06:00 O2 Sat by Pulse Oximetry (%) 99 01/15/20 22:00 Cardiovascular: Yes: Tachycardia, S1, S2 Respiratory: Yes: Diminished, On Venti-Mask Edema: No Labs: CBC, BMP 01/14/20 08:00 01/14/20 08:00 Problem List - Problems (1) Acute metabolic encephalopathy Code(s): G93.41 - METABOLIC ENCEPHALOPATHY (2) Compression fracture of body of thoracic vertebra Code(s): S22.000A - WEDGE COMPRESSION FRACTURE OF UNSP THORACIC VERTEBRA, INIT (3) Diabetes Code(s): E11.9 - TYPE 2 DIABETES MELLITUS WITHOUT COMPLICATIONS (4) Pneumonia Code(s): J18.9 - PNEUMONIA, UNSPECIFIED ORGANISM Qualifiers: Qualified Code(s): J18.9 - Pneumonia, unspecified organism (5) Sepsis Code(s): A41.9 - SEPSIS, UNSPECIFIED ORGANISM (6) Dyspnea Code(s): R06.00 - DYSPNEA, UNSPECIFIED Qualifiers: Dyspnea type: shortness of breath Qualified Code(s): R06.02 - Shortness of breath; R06.00 - Dyspnea, unspecified; R06.01 - Orthopnea (7) HLD (hyperlipidemia) Code(s): E78.5 - HYPERLIPIDEMIA, UNSPECIFIED Qualifiers: Hyperlipidemia type: pure hypercholesterolemia Qualified Code(s): E78.00 - Pure hypercholesterolemia, unspecified; E78.0 - Pure hypercholesterolemia (8) HTN (hypertension) Code(s): I10 - ESSENTIAL (PRIMARY) HYPERTENSION Qualifiers: Hypertension type: essential hypertension Qualified Code(s): I10 - Essential (primary) hypertension Assessment/Plan 1. Sinus tachycardia referable to pulmonary process 2. Home O2 and steroid dependent COPD/ILD/radiation fibrosis, ? pneumonia 3. Demand ischemia 4. Compression fracture 5. Post-mechanical fall 6. HTN 7. Hyperlipidemia PLAN: 1. Empiric antibiotic coverage, bronchodilator, IV steroid with GI protection, FIO2 as needed, DVT prophylaxis 2. Continue ASA 81 mg QD 3. May try Cardizem CD 120 mg QD or Cardizem 30 mg Q8 or Q6 4. ? Palliative care Guarded. DNR Froylan Brody MD
--- NOTE | 2020-01-16 09:57 | PN ---
Progress Note, Physician History of Present Illness: pulmonary lethargic,on 100%nrb,mildly tachypneic - Current Medication List Current Medications: Active Medications Albuterol Sulfate (Ventolin 0.083% Nebulizer Soln -) 1 amp NEB Q6H PRN PRN Reason: SHORT OF BREATH/WHEEZING Albuterol/Ipratropium (Duoneb -) 1 amp NEB RQID [facility] Last Admin: 01/16/20 08:07 Dose: 1 amp Documented by: Aspirin (Ecotrin -) 81 mg PO DAILY [facility] Last Admin: 01/16/20 09:46 Dose: Not Given Documented by: Budesonide/Formoterol Fumarate (Symbicort 80/4.5mcg -) 2 puff IH BID [facility] Last Admin: 01/16/20 09:46 Dose: Not Given Documented by: Enoxaparin Sodium (Lovenox -) 40 mg SQ DAILY [facility] Last Admin: 01/16/20 09:44 Dose: 40 mg Documented by: Doxycycline Hyclate 100 mg/ (Dextrose) 100 mls @ 100 mls/hr IVPB BID [facility] Last Admin: 01/16/20 09:45 Dose: 100 mls/hr Documented by: Piperacillin Sod/Tazobactam (Sod 3.375 gm/ Dextrose) 50 mls @ 100 mls/hr IVPB Q8H-IV [facility]; Protocol Last Admin: 01/16/20 09:44 Dose: 100 mls/hr Documented by: Sodium Chloride (Normal Saline -) 1,000 mls @ 30 mls/hr IV ASDIR [facility] Last Admin: 01/15/20 14:45 Dose: Not Given Documented by: Methylprednisolone Sodium Succinate (Solu-Medrol -) 40 mg IVPUSH Q8H-IV [facility] Last Admin: 01/16/20 09:44 Dose: 40 mg Documented by: Morphine Sulfate (Morphine Sulfate) 2 mg IVPUSH Q3H PRN PRN Reason: PAIN LEVEL 1-5 Last Admin: 01/16/20 08:55 Dose: 2 mg Documented by: Pantoprazole Sodium (Protonix Iv) 40 mg IVPUSH DAILY [facility] Last Admin: 01/16/20 09:44 Dose: 40 mg Documented by: - Objective Vital Signs: Vital Signs Temperature 97.8 F 01/16/20 06:00 Pulse Rate 127 H 08/24/20 06:00 Respiratory Rate 22 H 01/16/20 06:00 Blood Pressure 136/78 01/16/20 06:00 O2 Sat by Pulse Oximetry (%) 99 01/15/20 22:00 Constitutional: Yes: Mild Distress, Other (lethargic) Eyes: Yes: WNL HENT: Yes: WNL Neck: Yes: WNL Cardiovascular: Yes: Regular Rate and Rhythm, S1, S2 Respiratory: Yes: Rales (scattered sukhdev rales) Gastrointestinal: Yes: Normal Bowel Sounds, Soft Extremities: Yes: WNL Edema: Yes Labs: CBC, BMP Assessment/Plan roblem List - Problems (1) Compression fracture of body of thoracic vertebra Code(s): S22.000A - WEDGE COMPRESSION FRACTURE OF UNSP THORACIC VERTEBRA, INIT (2) Lung cancer Code(s): C34.90 - MALIGNANT NEOPLASM OF UNSP PART OF UNSP BRONCHUS OR LUNG (3) Lung cancer associated cerebellar ataxia Code(s): C34.90 - MALIGNANT NEOPLASM OF UNSP PART OF UNSP BRONCHUS OR LUNG; G32.81 - CEREBELLAR ATAXIA IN DISEASES CLASSIFIED ELSEWHERE (4) Pneumonia Code(s): J18.9 - PNEUMONIA, UNSPECIFIED ORGANISM (5) Radiation fibrosis Code(s): J70.1 - CHRONIC AND OTHER PULMONARY MANIFESTATIONS DUE TO RADIATION EMPIRIC ANTIBIOTIC COVERAGE CONTINUE O2 BRONCHODILATORS AGREE WITH DNR/DNI COMFORT MEASURES DR PATEL
[2020-01-16 12:19] LABS: BASO % 0.2 % (0-2.0); HEMATOCRIT 34.5 % (32.4-45.2); LYMPH % 3.7 % (8-40); MCH 29.2 pg (25.7-33.7); MCHC 31.8 g/dl (32.0-36.0); MEAN CELL VOLUME 91.8 fl (80-96); MONO % 5.3 % (3.8-10.2); NEUT % 90.8 % (42.8-82.8); PLATELET COUNT 134 K/MM3 (134-434); RBC 3.76 M/mm3 (3.60-5.2); RDW 15.1 % (11.6-15.6); WHITE BLOOD COUNT 19.7 K/mm3 (4.0-10.0)
[2020-01-16 12:55] LABS: POTASSIUM 4.3 mmol/L (3.5-5.1)
[2020-01-16 13:01] LABS: ALBUMIN 2.8 g/dl (3.4-5.0); BILIRUBIN,TOTAL 1.1 mg/dL (0.2-1); CALCIUM 8.9 mg/dL (8.5-10.1); CREATININE 0.9 mg/dL (0.55-1.3); MAGNESIUM 2.4 mg/dL (1.8-2.4); TOT PROT 5.3 g/dl (6.4-8.2)
--- NOTE | 2020-01-16 13:34 | PN ---
Progress Note, Physician History of Present Illness: lethargic on nrb 100 percent wbc marginally down - Current Medication List Current Medications: Active Medications Albuterol Sulfate (Ventolin 0.083% Nebulizer Soln -) 1 amp NEB Q6H PRN PRN Reason: SHORT OF BREATH/WHEEZING Albuterol/Ipratropium (Duoneb -) 1 amp NEB RQID [facility] Last Admin: 01/16/20 08:07 Dose: 1 amp Documented by: Aspirin (Ecotrin -) 81 mg PO DAILY [facility] Last Admin: 01/16/20 09:46 Dose: Not Given Documented by: Budesonide/Formoterol Fumarate (Symbicort 80/4.5mcg -) 2 puff IH BID [facility] Last Admin: 01/16/20 09:46 Dose: Not Given Documented by: Enoxaparin Sodium (Lovenox -) 40 mg SQ DAILY [facility] Last Admin: 01/16/20 09:44 Dose: 40 mg Documented by: Doxycycline Hyclate 100 mg/ (Dextrose) 100 mls @ 100 mls/hr IVPB BID [facility] Last Admin: 01/16/20 09:45 Dose: 100 mls/hr Documented by: Piperacillin Sod/Tazobactam (Sod 3.375 gm/ Dextrose) 50 mls @ 100 mls/hr IVPB Q8H-IV [facility]; Protocol Last Admin: 01/16/20 09:44 Dose: 100 mls/hr Documented by: Sodium Chloride (Normal Saline -) 1,000 mls @ 30 mls/hr IV ASDIR [facility] Last Admin: 01/15/20 14:45 Dose: Not Given Documented by: Lorazepam (Ativan Injection -) 0.5 mg IVPUSH Q4H PRN PRN Reason: ANXIETY Methylprednisolone Sodium Succinate (Solu-Medrol -) 40 mg IVPUSH Q8H-IV [facility] Last Admin: 01/16/20 09:44 Dose: 40 mg Documented by: Morphine Sulfate (Morphine Sulfate) 2 mg IVPUSH Q3H PRN PRN Reason: PAIN LEVEL 1-5 Last Admin: 01/16/20 08:55 Dose: 2 mg Documented by: Pantoprazole Sodium (Protonix Iv) 40 mg IVPUSH DAILY [facility] Last Admin: 01/16/20 09:44 Dose: 40 mg Documented by: - Objective Vital Signs: Vital Signs Temperature 97.8 F 01/16/20 10:00 Pulse Rate 138 H 01/16/20 10:00 Respiratory Rate 22 H 01/16/20 10:00 Blood Pressure 111/90 01/16/20 10:00 O2 Sat by Pulse Oximetry (%) 100 01/16/20 10:00 Constitutional: Yes: Other Cardiovascular: Yes: S1, S2 Respiratory: Yes: Other (on nrb) Gastrointestinal: Yes: Soft Musculoskeletal: Yes: WNL Extremities: Yes: WNL Labs: CBC, BMP 01/16/20 11:50 01/16/20 11:50 INR, PTT INR 1.03 (0.83-1.09) 01/13/20 22:00 Assessment/Plan Problem List - Problems (1) Compression fracture of body of thoracic vertebra Code(s): S22.000A - WEDGE COMPRESSION FRACTURE OF UNSP THORACIC VERTEBRA, INIT (2) Lung cancer Code(s): C34.90 - MALIGNANT NEOPLASM OF UNSP PART OF UNSP BRONCHUS OR LUNG (3) Lung cancer associated cerebellar ataxia Code(s): C34.90 - MALIGNANT NEOPLASM OF UNSP PART OF UNSP BRONCHUS OR LUNG; G32.81 - CEREBELLAR ATAXIA IN DISEASES CLASSIFIED ELSEWHERE (4) Pneumonia Code(s): J18.9 - PNEUMONIA, UNSPECIFIED ORGANISM (5) Radiation fibrosis Code(s): J70.1 - CHRONIC AND OTHER PULMONARY MANIFESTATIONS DUE TO RADIATION 6 leukocytosis Assessment/Plan continue abx monitor wbc resp support rest as per the team await for final plan
[2020-01-16] MEDS: LORazepam 2 MG/ML SDV VIAL IVPUSH PRN ×3 (14:10→21:56)
--- NOTE | 2020-01-16 15:18 | PN ---
Physical Exam: SUBJECTIVE: Patient seen and examined at the bedside. She was very restless, and attempting to pull off her oxygen and pull at her IV site. OBJECTIVE: Patient is an 85 year old female with a significant past medical history of bronchogenic Ca s/p lobectomy (last rad tx April 2018), right lung nodules s/p radiation (2017), HTN, HLD, COPD on 3L home O2, dementia NC BIBA after unwtinessed fall at home. Found down on Left-side. No LOC at that time. At [facility], had multifocal complaint of pain to the Left chest wall, chest, and abd. imaging: CT head: no acute pathology. CT A/P w/contrast:: no bowel obstruction. Some colonic diverticula, neg diverticulitis or colitis. Gallstones in the GB. Multiple liver lesions that have the appearance of cyst. Multiple uterine masses, some have appearance of calcified fibroids, but some are indeterminate. CT lumber spine: mild compression fracture of the superior endplate of T12, less than 50% loss of height. Slight anterolithesis of L5 on S1, likely degenerative. Sclerotic foci in the L2 vertebral body CT chest w/wo: advanced emphysematous changes, multiple b/l blebs. Infiltrate and atelectasis in the Right upper lobe. Infiltrates in the lower lobes. Healing Left rib fractures CT T spine: multiple compression fractures of T8, T9, T12 of age indeterminate. T5 compression fracture w/verteboplasty Vital Signs Period Temp Pulse Resp BP Sys/Alonzo Pulse Ox Last 24 Hr 97.3 F-98.1 F 124-138 20-24 111-145/74-90 96-100 GENERAL: lethargic, restless/agitated, anxious HEAD: Normal with no signs of trauma. EYES: PERRL, extraocular movements intact, sclera anicteric, conjunctiva clear. No ptosis. ENT: Ears normal, nares patent, oropharynx clear without exudates NECK: Trachea midline LUNGS: Breath sounds diminished bilaterally HEART: sinus tachycardia EXTREMITIES: no edema. NEUROLOGICAL: restless and anxious PSYCH: Normal mood, normal affect. SKIN: scattered brusing on bilateral arms, small skin tear right arm Laboratory Results - last 24 hr 01/16/20 01/16/20 11:50 11:50 WBC 19.7 H RBC 3.76 Hgb 11.0 Hct 34.5 D MCV 91.8 MCH 29.2 MCHC 31.8 L RDW 15.1 Plt Count 134 MPV 9.0 D Absolute Neuts (auto) 17.9 H Neutrophils % 90.8 H Lymphocytes % 3.7 L D Monocytes % 5.3 Eosinophils % 0.0 D Basophils % 0.2 Nucleated RBC % 0 Sodium 143 Potassium 4.3 Chloride 110 H Carbon Dioxide 18 L Anion Gap 15 BUN 24.0 H Creatinine 0.9 Est GFR (CKD-EPI)AfAm 67.57 Est GFR (CKD-EPI)NonAf 58.30 Random Glucose 257 H Calcium 8.9 Magnesium 2.4 Total Bilirubin 1.1 H AST 45 H ALT 33 Alkaline Phosphatase 47 Total Protein 5.3 L Albumin 2.8 L Active Medications Generic Name Dose Route Start Last Admin Trade Name Freq PRN Reason Stop Dose Admin Albuterol Sulfate 1 amp 01/14/20 06:39 Ventolin 0.083% Nebulizer Soln - NEB Q6H PRN SHORT OF BREATH/WHEEZING Albuterol/Ipratropium 1 amp 01/14/20 08:00 01/16/20 08:07 Duoneb - NEB 1 amp RQID [facility] Administration Aspirin 81 mg 01/14/20 10:00 01/16/20 09:46 Ecotrin - PO Not Given DAILY [facility] Budesonide/Formoterol Fumarate 2 puff 01/14/20 10:00 01/16/20 09:46 Symbicort 80/4.5mcg - IH Not Given BID [facility] Enoxaparin Sodium 40 mg 01/16/20 10:00 01/16/20 09:44 Lovenox - SQ 40 mg DAILY [facility] Administration Doxycycline Hyclate 100 mg/ 100 mls @ 100 mls/hr 01/14/20 11:58 01/16/20 09:45 Dextrose IVPB 100 mls/hr BID [facility] Administration Piperacillin Sod/Tazobactam 50 mls @ 100 mls/hr 01/14/20 18:00 01/16/20 09:44 Sod 3.375 gm/ Dextrose IVPB 100 mls/hr Q8H-IV [facility] Administration Protocol Sodium Chloride 1,000 mls @ 30 mls/hr 01/15/20 14:39 01/15/20 14:45 Normal Saline - IV Not Given ASDIR [facility] Lorazepam 0.5 mg 01/16/20 11:36 01/16/20 14:10 Ativan Injection - IVPUSH 0.5 mg Q4H PRN Administration ANXIETY Methylprednisolone Sodium Succinate 40 mg 01/14/20 10:00 01/16/20 09:44 Solu-Medrol - IVPUSH 40 mg Q8H-IV [facility] Administration Morphine Sulfate 2 mg 01/14/20 19:24 01/16/20 08:55 Morphine Sulfate IVPUSH 2 mg Q3H PRN Administration PAIN LEVEL 1-5 Pantoprazole Sodium 40 mg 01/14/20 10:00 01/16/20 09:44 Protonix Iv IVPUSH 40 mg DAILY [facility] Administration ASSESSMENT/PLAN: Problem List - Problems (1) Sepsis Assessment/Plan: sepsis secondary to pneumonia Leukocytosis, elevated lactic acid, tachycardia, AMS CT chest w/wo contrast: advanced emphysematous changes, multiple b/l blebs. Infiltrate and atelectasis in the RIght upper lobe. Infiltrates in the lower lobes. Healing Left rib fractures Seen by ID and started on zosyn Pulmonary consult Code(s): A41.9 - SEPSIS, UNSPECIFIED ORGANISM (2) Acute metabolic encephalopathy Assessment/Plan: In the settng of sepsis in acute pnemonia. per chest ct: advanced emphysematous changes, multiple b/l blebs. Infiltrate and atelectasis in the Right upper lobe. Infiltrates in the lower lobes. Healing Left rib fractures On zosyn per ID Monitor blood cultures, ngtd monitor mental status on a NRB Code(s): G93.41 - METABOLIC ENCEPHALOPATHY (3) Compression fracture of body of thoracic vertebra Assessment/Plan: patient is s/p fall patient family opted for hospice monitor pain levels on morphine prn, added ativan to promote comfort Code(s): S22.000A - WEDGE COMPRESSION FRACTURE OF UNSP THORACIC VERTEBRA, INIT (4) Emphysema lung Assessment/Plan: On solumederol bronchodilators on supplemental oxygen to maintain oxygen above 92% Monitor airway Code(s): J43.9 - EMPHYSEMA, UNSPECIFIED Qualifiers: Emphysema type: panlobular Qualified Code(s): J43.1 - Panlobular emphysema (5) Fall Assessment/Plan: maintain fall precautions Code(s): W19.XXXA - UNSPECIFIED FALL, INITIAL ENCOUNTER Qualifiers: Encounter type: initial encounter Qualified Code(s): W19.XXXA - Unspecified fall, initial encounter (6) DNR (do not resuscitate) Code(s): Z66 - DO NOT RESUSCITATE (7) DNI (do not intubate) Code(s): Z78.9 - OTHER SPECIFIED HEALTH STATUS (8) DVT prophylaxis Assessment/Plan: lovenox 40 Code(s): Z29.9 - ENCOUNTER FOR PROPHYLACTIC MEASURES, UNSPECIFIED (9) Diabetes Assessment/Plan: monitor BGMs hgA1c 5.5 on diabetic diet Code(s): E11.9 - TYPE 2 DIABETES MELLITUS WITHOUT COMPLICATIONS Visit type - Emergency Visit Emergency Visit: Yes ED Registration Date: 01/14/20 Care time: The patient presented to the Emergency Department on the above date and was hospitalized for further evaluation of their emergent condition. - New Patient This patient is new to me today: Yes Date on this admission: 01/16/20 - Critical Care Critical Care patient: No - Discharge Referral Referred to [facility] No - Medication Review Med list reviewed for High Risk Meds patients 65 and older: Yes
[2020-01-16] MEDS ORDERED: ACETAMINOPHEN 650 MG SUPP.RECT PR PRN (15:49)
[2020-01-16] MEDS ORDERED: BISACODYL 10 MG SUPP.RECT PR PRN (15:49)
[2020-01-16] MEDS: SODIUM CHLORIDE 1,000 ML IV SCH (17:40)
[2020-01-16 19:05] LABS: ANISOCYTOSIS 2+; MACROCYTOSIS 0; PLATELET ESTIMATE NORMAL
--- NOTE | 2020-01-16 21:56 | EKG ---
Test Reason : Blood Pressure : / mmHG Vent. Rate : 093 BPM Atrial Rate : 093 BPM P-R Int : 104 ms QRS Dur : 082 ms QT Int : 378 ms P-R-T Axes : 037 -08 011 degrees QTc Int : 469 ms SINUS RHYTHM WITH SHORT GA OTHERWISE NORMAL ECG WHEN COMPARED WITH ECG OF 13-JAN-2020 21:57, VENT. RATE HAS DECREASED T WAVE VARIATION Confirmed by RENEE TORRES MD ([id number]) on 01/16/2020 9:56:16 PM Referred By: Confirmed By:RENEE TORRES MD
--- NOTE | 2020-01-16 21:58 | EKG ---
Test Reason : Blood Pressure : / mmHG Vent. Rate : 138 BPM Atrial Rate : 138 BPM P-R Int : 098 ms QRS Dur : 072 ms QT Int : 298 ms P-R-T Axes : 042 -05 047 degrees QTc Int : 451 ms SINUS TACHYCARDIA WITH SHORT KS LEFT ATRIAL ENLARGEMENT LEFT VENTRICULAR HYPERTROPHY WITH REPOLARIZATION ABNORMALITY ABNORMAL ECG WHEN COMPARED WITH ECG OF 08-FEB-2019 15:28, T WAVE VARIATION VENT. RATE HAS INCREASED Confirmed by MELISSA BATISTA, RENEE ([id number]) on 01/16/2020 9:58:06 PM Referred By: Confirmed By:RENEE TORRES MD
[2020-01-17] MEDS: MORPHINE SULFATE 2 MG/ML VIAL IVPUSH PRN ×6 (00:44→18:25)
[2020-01-17] MEDS ORDERED: PIPERACILLIN/TAZOBACTAM 3.375 GM VIAL IVPB ONE ×2 (01:03→09:21)
[2020-01-17] MEDS ORDERED: DEXTROSE 5%-WATER - 50 ML IVPB ONE ×2 (01:03→09:21)
[2020-01-17] MEDS: methylPREDNISolone NA SUCC 40 MG/1 ML VIAL IVPUSH SCH ×2 (01:09→10:38)
[2020-01-17] MEDS: PIPERACILLIN/TAZOB 3.375 GM 3.375 GM in DEXTROSE 5%-WATER - 50 ML IVPB SCH ×3 (01:18→17:35)
--- NOTE | 2020-01-17 06:39 | PN ---
Progress Note (short form) - Note Progress Note: Chief Complaint: Events noted, notes reviewed, in bed- lethargic and tachypneic, overall no change in status as per nursing staff History of Present Illness: Seen and examined on telemetry. Events noted, notes reviewed, in bed- lethargic and tachypneic, overall no change in status as per nursing staff For palliative care Medications: Current Medications Generic Name Dose Route Start Last Admin Trade Name Freq PRN Reason Stop Dose Admin Acetaminophen 650 mg 01/16/20 15:49 Tylenol Suppository - [place] Q4H PRN FEVER Albuterol Sulfate 1 amp 01/14/20 06:39 Ventolin 0.083% Nebulizer Soln - NEB Q6H PRN SHORT OF BREATH/WHEEZING Albuterol/Ipratropium 1 amp 01/14/20 08:00 01/16/20 20:18 Duoneb - NEB 1 amp RQID MENDEZ Administration Aspirin 81 mg 01/14/20 10:00 01/16/20 09:46 Ecotrin - PO Not Given DAILY MENDEZ Bisacodyl 10 mg 01/16/20 15:49 Dulcolax Suppository - [place] DAILY PRN CONSTIPATION Budesonide/Formoterol Fumarate 2 puff 01/14/20 10:00 01/16/20 22:03 Symbicort 80/4.5mcg - IH Not Given BID MENDEZ Enoxaparin Sodium 40 mg 01/16/20 10:00 01/16/20 09:44 Lovenox - SQ 40 mg DAILY MENDEZ Administration Doxycycline Hyclate 100 mg/ 100 mls @ 100 mls/hr 01/14/20 11:58 01/16/20 21:58 Dextrose IVPB 100 mls/hr BID MENDEZ Administration Piperacillin Sod/Tazobactam 50 mls @ 100 mls/hr 01/14/20 18:00 01/17/20 01:18 Sod 3.375 gm/ Dextrose IVPB 100 mls/hr Q8H-IV MENDEZ Administration Protocol Sodium Chloride 1,000 mls @ 30 mls/hr 01/15/20 14:39 01/16/20 17:40 Normal Saline - IV 30 mls/hr ASDIR MENDEZ Administration Lorazepam 0.5 mg 01/16/20 11:36 01/16/20 21:56 Ativan Injection - IVPUSH 0.5 mg Q4H PRN Administration ANXIETY Methylprednisolone Sodium Succinate 40 mg 01/14/20 10:00 01/17/20 01:09 Solu-Medrol - IVPUSH 40 mg Q8H-IV MENDEZ Administration Morphine Sulfate 2 mg 01/14/20 19:24 01/17/20 05:32 Morphine Sulfate IVPUSH 2 mg Q3H PRN Administration PAIN LEVEL 1-5 Pantoprazole Sodium 40 mg 01/14/20 10:00 01/16/20 09:44 Protonix Iv IVPUSH 40 mg DAILY MENDEZ Administration Review of Systems Unable to obtain/lethargy Vital Signs: Last Vital Signs Temp Pulse Resp BP Pulse Ox 97.6 F 138 H 20 156/80 100 01/17/20 05:51 01/17/20 05:51 01/17/20 05:51 01/17/20 05:51 01/16/20 22:00 Intake & Output 01/14/20 01/15/20 01/16/20 01/17/20 23:59 23:59 23:59 23:59 Intake Total 380 1380 510 480 Balance 380 1380 510 480 Weight 125 lb Neck: Supple Negative JVD Respiratory: Diminished Breath Sounds at the Bases Cardiovascular: S1 S2 Regular Rate Rhythm Gastrointestinal: Soft Benign Normal Bowel Sounds Ext: Negative Edema Labs: CBC, BMP 01/17/20 09:40 CBC, BMP 01/16/20 11:50 01/16/20 11:50 Hepatic Panel Total Bilirubin 1.1 mg/dL (0.2-1) H 01/16/20 11:50 AST 45 U/L (15-37) H 01/16/20 11:50 ALT 33 U/L (13-61) 01/16/20 11:50 Alkaline Phosphatase 47 U/L (45-117) 01/16/20 11:50 Albumin 2.8 g/dl (3.4-5.0) L 01/16/20 11:50 INR, PTT INR 1.03 (0.83-1.09) 01/13/20 22:00 Assessment/Plan ASSESSMENT: 1. Sinus tachycardia referable to underlying pneumonia 2. 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 Coronary artery disease, visual coronary artery calcification on CT scan of the chest angina pectoris with evidence of demand ischemic injury 4. Diastolic left ventricular dysfunction with clinical class 0 [place] [employer] classification left ventricular failure 5. Hypertensive cardiovascular disease 6. Hypercholesterolemia 7. Toxic metabolic encephalopathy 8. Mechanical fall with compression fractures 9. History of bronchogenic carcinoma PLAN: 1. Antibiotics as per the primary team 2. Continue ASA therapy provided the patient is able to take oral therapy 3. Consider the addition of beta-omega therapy, Lopressor therapy at 25 mg twice daily provided the patient is able to take oral therapy 4. Overall poor prognosis for palliative care/management as per family request Katlin Hilton MD
[2020-01-17] MEDS: LORazepam 2 MG/ML SDV VIAL IVPUSH PRN ×4 (06:53→20:43)
[2020-01-17] MEDS: ALBUTEROL SO4 2.5/IPRATROPIUM 0.5 INH SOL 3 ML VIAL.NEB. NEB SCH ×4 (08:37→20:34)
--- NOTE | 2020-01-17 08:39 | PN ---
Progress Note, Physician Chief Complaint: Seen and examined in bed. Moaning-not following commands. DNR/DNI in place. Family meeting with palliative care team and family pending. History of Present Illness: Patient is an 85 year old female with a significant past medical history of bronchogenic Ca s/p lobectomy (last rad tx April 2018), right lung nodules s/p radiation (2017), HTN, HLD, COPD on 3L home O2, dementia [place] BIBA after unwtinessed fall at home. Found down on Left-side. No LOC at that time. At [facility], had multifocal complaint of pain to the Left chest wall, chest, and abd. - Current Medication List Current Medications: Active Medications Acetaminophen (Tylenol Suppository -) 650 mg [place] Q4H PRN PRN Reason: FEVER Albuterol Sulfate (Ventolin 0.083% Nebulizer Soln -) 1 amp NEB Q6H PRN PRN Reason: SHORT OF BREATH/WHEEZING Albuterol/Ipratropium (Duoneb -) 1 amp NEB RQID [facility] Last Admin: 01/16/20 20:18 Dose: 1 amp Documented by: Aspirin (Ecotrin -) 81 mg PO DAILY [facility] Last Admin: 01/16/20 09:46 Dose: Not Given Documented by: Bisacodyl (Dulcolax Suppository -) 10 mg [place] DAILY PRN PRN Reason: CONSTIPATION Budesonide/Formoterol Fumarate (Symbicort 80/4.5mcg -) 2 puff IH BID [facility] Last Admin: 01/16/20 22:03 Dose: Not Given Documented by: Enoxaparin Sodium (Lovenox -) 40 mg SQ DAILY [facility] Last Admin: 01/16/20 09:44 Dose: 40 mg Documented by: Doxycycline Hyclate 100 mg/ (Dextrose) 100 mls @ 100 mls/hr IVPB BID [facility] Last Admin: 01/16/20 21:58 Dose: 100 mls/hr Documented by: Piperacillin Sod/Tazobactam (Sod 3.375 gm/ Dextrose) 50 mls @ 100 mls/hr IVPB Q8H-IV MENDEZ; Protocol Last Admin: 01/17/20 01:18 Dose: 100 mls/hr Documented by: Sodium Chloride (Normal Saline -) 1,000 mls @ 30 mls/hr IV ASDIR [facility] Last Admin: 01/16/20 17:40 Dose: 30 mls/hr Documented by: Lorazepam (Ativan Injection -) 0.5 mg IVPUSH Q4H PRN PRN Reason: ANXIETY Last Admin: 01/17/20 06:53 Dose: 0.5 mg Documented by: Methylprednisolone Sodium Succinate (Solu-Medrol -) 40 mg IVPUSH Q8H-IV [facility] Last Admin: 01/17/20 01:09 Dose: 40 mg Documented by: Morphine Sulfate (Morphine Sulfate) 2 mg IVPUSH Q3H PRN PRN Reason: PAIN LEVEL 1-5 Last Admin: 01/17/20 05:32 Dose: 2 mg Documented by: Pantoprazole Sodium (Protonix Iv) 40 mg IVPUSH DAILY [facility] Last Admin: 01/16/20 09:44 Dose: 40 mg Documented by: - Objective Vital Signs: Vital Signs Temperature 97.6 F 01/17/20 05:51 Pulse Rate 138 H 01/17/20 05:51 Respiratory Rate 20 01/17/20 05:51 Blood Pressure 156/80 01/17/20 05:51 O2 Sat by Pulse Oximetry (%) 100 01/16/20 22:00 Constitutional: Yes: Anxious, Moderate Distress, Thin Eyes: Yes: WNL, Conjunctiva Clear HENT: Yes: WNL, Atraumatic, Normocephalic Neck: Yes: WNL, Supple, Trachea Midline Cardiovascular: Yes: WNL, Regular Rate and Rhythm Respiratory: Yes: Regular, Diminished (at bases BL) Gastrointestinal: Yes: Normal Bowel Sounds, Soft ...Rectal Exam: Yes: Deferred Genitourinary: Yes: WNL Breast(s): Yes: WNL Musculoskeletal: Yes: Muscle Weakness Extremities: Yes: WNL Edema: Yes Edema: LUE: Trace, RUE: Trace, LLE: Trace, RLE: Trace Peripheral Pulses WNL: Yes Peripheral Pulses: Left Radial: 2+, Right Radial: 2+, Left Doralis Pedis: 2+, Right Dorsalis Pedis: 2+, Left Femoral: 2+, Right Femoral: 2+ Integumentary: Yes: Bruising, Skin Tear (to upper and lower extrem bl) Neurological: Yes: Other (not following commands) Labs: CBC, BMP 01/16/20 11:50 01/16/20 11:50 INR, PTT INR 1.03 (0.83-1.09) 01/13/20 22:00 - ....Imaging Other: Other (CT head: no acute pathology. CT A/P w/contrast:: no bowel obstruction. Some colonic diverticula, neg diverticulitis or colitis. Gallstones in the GB. Multiple liver lesions that have the appearance of cyst. Multiple uterine masses, some have appearance of calcified fibroids, but some are indeterminate. CT lumber spine: mild compression fracture of the superior endplate of T12, less than 50% loss of height. Slight anterolithesis of L5 on S1, likely degenerative. Sclerotic foci in the L2 vertebral body CT chest w/wo: advanced emphysematous changes, multiple b/l blebs. Infiltrate and atelectasis in the Right upper lobe. Infiltrates in the lower lobes. Healing Left rib fractures CT T spine: multiple compression fractures of T8, T9, T12 of age indeterminate. T5 compression fracture w/verteboplasty) Problem List - Problems (1) Prophylactic measure Assessment/Plan: FEN Fluids: NPO Electrolytes: no further blood draws as per family Nutrition: pleasure feeds with aspiration precautions DVT sq heparin Dispo Maintain as inpatient DNR/DNI discharge planning to [place] Code(s): Z29.9 - ENCOUNTER FOR PROPHYLACTIC MEASURES, UNSPECIFIED (2) COVID-19 ruled out by laboratory testing Assessment/Plan: negative pcr Code(s): Z03.818 - ENCNTR FOR OBS FOR SUSP EXPSR TO OTH BIOLG AGENTS RULED OUT (3) Acute metabolic encephalopathy Assessment/Plan: In the settng of sepsis in acute pnemonia. per chest ct: advanced emphysematous changes, multiple b/l blebs. Infiltrate and atelectasis in the Right upper lobe. Infiltrates in the lower lobes. Healing Left rib fractures On zosyn per ID-will c/t until dc'd to [facility] on a [facility] Code(s): G93.41 - METABOLIC ENCEPHALOPATHY (4) Compression fracture of body of thoracic vertebra Assessment/Plan: patient is s/p fall patient family opted for hospice monitor pain levels started morphine drip, c/w ativan Code(s): S22.000A - WEDGE COMPRESSION FRACTURE OF UNSP THORACIC VERTEBRA, INIT (5) DNI (do not intubate) Assessment/Plan: appreciate Palliative care team plan for dc to [place] Code(s): Z78.9 - OTHER SPECIFIED HEALTH STATUS (6) Diabetes Assessment/Plan: monitor BGMs hgA1c 5.5 on diabetic diet Code(s): E11.9 - TYPE 2 DIABETES MELLITUS WITHOUT COMPLICATIONS Qualifiers: Diabetes mellitus complication detail: with other neurological complication (7) DNR (do not resuscitate) Code(s): Z66 - DO NOT RESUSCITATE (8) Emphysema lung Assessment/Plan: On solumederol bronchodilators on supplemental oxygen to maintain oxygen above 92% Monitor airway Code(s): J43.9 - EMPHYSEMA, UNSPECIFIED Qualifiers: Emphysema type: panlobular Qualified Code(s): J43.1 - Panlobular emphysema (9) Fall Assessment/Plan: fall precautions Code(s): W19.XXXA - UNSPECIFIED FALL, INITIAL ENCOUNTER Qualifiers: Encounter type: initial encounter Qualified Code(s): W19.XXXA - Unspecified fall, initial encounter (10) Lung cancer Code(s): C34.90 - MALIGNANT NEOPLASM OF UNSP PART OF UNSP BRONCHUS OR LUNG Qualifiers: Laterality: unspecified laterality Lung location: unspecified part of lung Qualified Code(s): C34.90 - Malignant neoplasm of unspecified part of unspecified bronchus or lung (11) Sepsis Assessment/Plan: sepsis secondary to pneumonia Leukocytosis, elevated lactic acid, tachycardia, AMS CT chest w/wo contrast: advanced emphysematous changes, multiple b/l blebs. Infiltrate and atelectasis in the RIght upper lobe. Infiltrates in the lower lobes. c/w zosyn until trabnsfer to [place] as per ID Pulmonary following Code(s): A41.9 - SEPSIS, UNSPECIFIED ORGANISM (12) HLD (hyperlipidemia) Code(s): E78.5 - HYPERLIPIDEMIA, UNSPECIFIED Qualifiers: Hyperlipidemia type: pure hypercholesterolemia Qualified Code(s): E78.00 - Pure hypercholesterolemia, unspecified; E78.0 - Pure hypercholesterolemia (13) HTN (hypertension) Code(s): I10 - ESSENTIAL (PRIMARY) HYPERTENSION Qualifiers: Hypertension type: essential hypertension Qualified Code(s): I10 - Essential (primary) hypertension (14) Palliative care encounter Assessment/Plan: plan for transfer to [place] appreciate Palliave care team assistance Code(s): Z51.5 - ENCOUNTER FOR PALLIATIVE CARE Visit type - Emergency Visit Emergency Visit: Yes ED Registration Date: 01/14/20 Care time: The patient presented to the Emergency Department on the above date and was hospitalized for further evaluation of their emergent condition. - New Patient This patient is new to me today: Yes Date on this admission: 01/17/20 - Critical Care Critical Care patient: No - Discharge Referral Referred to [facility] Med P.C.: No - Medication Review Med list reviewed for High Risk Meds patients 65 and older: Yes
[2020-01-17] MEDS ORDERED: DOXYCYCLINE HYCLATE 100 MG VIAL ONE ×2 (09:20→21:44)
[2020-01-17] MEDS ORDERED: DEXTROSE 5%-WATER 100 ML IVPB ONE ×2 (09:21→21:44)
--- NOTE | 2020-01-17 10:20 | PN ---
Progress Note, Physician History of Present Illness: PULMONARY LETHARGIC,RESTLESS,TACHYPNEIC ON 100%NRM,O2 SAT 100% - Current Medication List Current Medications: Active Medications Acetaminophen (Tylenol Suppository -) 650 mg [place] Q4H PRN PRN Reason: FEVER Albuterol Sulfate (Ventolin 0.083% Nebulizer Soln -) 1 amp NEB Q6H PRN PRN Reason: SHORT OF BREATH/WHEEZING Albuterol/Ipratropium (Duoneb -) 1 amp NEB RQID [facility] Last Admin: 01/16/20 20:18 Dose: 1 amp Documented by: Aspirin (Ecotrin -) 81 mg PO DAILY [facility] Last Admin: 01/16/20 09:46 Dose: Not Given Documented by: Bisacodyl (Dulcolax Suppository -) 10 mg [place] DAILY PRN PRN Reason: CONSTIPATION Budesonide/Formoterol Fumarate (Symbicort 80/4.5mcg -) 2 puff IH BID [facility] Last Admin: 01/16/20 22:03 Dose: Not Given Documented by: Enoxaparin Sodium (Lovenox -) 40 mg SQ DAILY [facility] Last Admin: 01/16/20 09:44 Dose: 40 mg Documented by: Doxycycline Hyclate 100 mg/ (Dextrose) 100 mls @ 100 mls/hr IVPB BID [facility] Last Admin: 01/16/20 21:58 Dose: 100 mls/hr Documented by: Piperacillin Sod/Tazobactam (Sod 3.375 gm/ Dextrose) 50 mls @ 100 mls/hr IVPB Q8H-IV MENDEZ; Protocol Last Admin: 01/17/20 01:18 Dose: 100 mls/hr Documented by: Sodium Chloride (Normal Saline -) 1,000 mls @ 30 mls/hr IV ASDIR [facility] Last Admin: 01/16/20 17:40 Dose: 30 mls/hr Documented by: Lorazepam (Ativan Injection -) 0.5 mg IVPUSH Q4H PRN PRN Reason: ANXIETY Last Admin: 01/17/20 06:53 Dose: 0.5 mg Documented by: Methylprednisolone Sodium Succinate (Solu-Medrol -) 40 mg IVPUSH Q8H-IV [facility] Last Admin: 01/17/20 01:09 Dose: 40 mg Documented by: Morphine Sulfate (Morphine Sulfate) 2 mg IVPUSH Q2H PRN PRN Reason: PAIN LEVEL 1-5 Pantoprazole Sodium (Protonix Iv) 40 mg IVPUSH DAILY [facility] Last Admin: 01/16/20 09:44 Dose: 40 mg Documented by: - Objective Vital Signs: Vital Signs Temperature 97.6 F 01/17/20 05:51 Pulse Rate 138 H 01/17/20 05:51 Respiratory Rate 20 01/17/20 05:51 Blood Pressure 156/80 01/17/20 05:51 O2 Sat by Pulse Oximetry (%) 100 01/16/20 22:00 Constitutional: Yes: Well Nourished, Mild Distress, Other (LETHARGIC,RESTLESS) Eyes: Yes: WNL HENT: Yes: WNL Neck: Yes: WNL Cardiovascular: Yes: Regular Rate and Rhythm, S1, S2 Respiratory: Yes: Diminished Gastrointestinal: Yes: Normal Bowel Sounds, Soft Extremities: Yes: WNL Edema: No Labs: Assessment/Plan roblem List - Problems (1) Compression fracture of body of thoracic vertebra Code(s): S22.000A - WEDGE COMPRESSION FRACTURE OF UNSP THORACIC VERTEBRA, INIT (2) Lung cancer Code(s): C34.90 - MALIGNANT NEOPLASM OF UNSP PART OF UNSP BRONCHUS OR LUNG (3) Lung cancer associated cerebellar ataxia Code(s): C34.90 - MALIGNANT NEOPLASM OF UNSP PART OF UNSP BRONCHUS OR LUNG; G32.81 - CEREBELLAR ATAXIA IN DISEASES CLASSIFIED ELSEWHERE (4) Pneumonia Code(s): J18.9 - PNEUMONIA, UNSPECIFIED ORGANISM (5) Radiation fibrosis Code(s): J70.1 - CHRONIC AND OTHER PULMONARY MANIFESTATIONS DUE TO RADIATION EMPIRIC ANTIBIOTIC COVERAGE CONTINUE O2 BRONCHODILATORS AGREE WITH DNR/DNI COMFORT MEASURES TAPER STEROIDS DR PATEL
[2020-01-17] MEDS: ASPIRIN COATED 81 MG TABLET.EC PO SCH (10:37)
[2020-01-17] MEDS: PANTOPRAZOLE SODIUM 40 MG VIAL IVPUSH SCH (10:38)
[2020-01-17] MEDS: BUDESONIDE/FORMETEROL FUMARATE 80/4.5 mcg INHALER IH SCH ×2 (10:38→21:16)
[2020-01-17] MEDS: ENOXAPARIN NA (PORCINE) 40 MG/0.4 ML DISP.SYRIN SQ SCH (10:38)
[2020-01-17 10:39] LABS: BASO % 0.2 % (0-2.0); HEMOGLOBIN 10.8 GM/dL (10.7-15.3); LYMPH % 4.7 % (8-40); MCH 29.1 pg (25.7-33.7); MCHC 31.8 g/dl (32.0-36.0); MEAN CELL VOLUME 91.3 fl (80-96); MEAN PLT VOLUME 9.7 fl (7.5-11.1); MONO % 6.7 % (3.8-10.2); NEUT % 88.4 % (42.8-82.8); PLATELET COUNT 90 K/MM3 (134-434); RBC 3.72 M/mm3 (3.60-5.2); RDW 14.8 % (11.6-15.6); WHITE BLOOD COUNT 12.1 K/mm3 (4.0-10.0)
[2020-01-17] MEDS: DOXYCYCLINE INJECTION 100 MG in DEXTROSE 5%-WATER 100 ML IVPB SCH ×2 (10:39→21:46)
[2020-01-17 11:07] LABS: ALBUMIN 2.9 g/dl (3.4-5.0); BILIRUBIN,TOTAL 1.2 mg/dL (0.2-1); BLOOD UREA NITROGEN 25.1 mg/dL (7-18); CREATININE 0.6 mg/dL (0.55-1.3); POTASSIUM 3.7 mmol/L (3.5-5.1); TOT PROT 5.3 g/dl (6.4-8.2)
[2020-01-17 12:11] LABS: ANISOCYTOSIS 0; MACROCYTOSIS 0; PLATELET ESTIMATE DECREASED
--- NOTE | 2020-01-17 13:00 | PN ---
Progress Note, Physician History of Present Illness: lethargic on nrb wbc trending down - Current Medication List Current Medications: Active Medications Acetaminophen (Tylenol Suppository -) 650 mg [place] Q4H PRN PRN Reason: FEVER Albuterol Sulfate (Ventolin 0.083% Nebulizer Soln -) 1 amp NEB Q6H PRN PRN Reason: SHORT OF BREATH/WHEEZING Albuterol/Ipratropium (Duoneb -) 1 amp NEB RQID [facility] Last Admin: 01/17/20 08:37 Dose: 1 amp Documented by: Aspirin (Ecotrin -) 81 mg PO DAILY [facility] Last Admin: 01/17/20 10:37 Dose: Not Given Documented by: Bisacodyl (Dulcolax Suppository -) 10 mg [place] DAILY PRN PRN Reason: CONSTIPATION Budesonide/Formoterol Fumarate (Symbicort 80/4.5mcg -) 2 puff IH BID [facility] Last Admin: 01/17/20 10:38 Dose: Not Given Documented by: Enoxaparin Sodium (Lovenox -) 40 mg SQ DAILY [facility] Last Admin: 01/17/20 10:38 Dose: 40 mg Documented by: Doxycycline Hyclate 100 mg/ (Dextrose) 100 mls @ 100 mls/hr IVPB BID [facility] Last Admin: 01/17/20 10:39 Dose: 100 mls/hr Documented by: Piperacillin Sod/Tazobactam (Sod 3.375 gm/ Dextrose) 50 mls @ 100 mls/hr IVPB Q8H-IV [facility]; Protocol Last Admin: 01/17/20 10:39 Dose: 100 mls/hr Documented by: Sodium Chloride (Normal Saline -) 1,000 mls @ 30 mls/hr IV ASDIR [facility] Last Admin: 01/16/20 17:40 Dose: 30 mls/hr Documented by: Lorazepam (Ativan Injection -) 0.5 mg IVPUSH Q4H PRN PRN Reason: ANXIETY Last Admin: 01/17/20 10:47 Dose: 0.5 mg Documented by: Methylprednisolone Sodium Succinate (Solu-Medrol -) 40 mg IVPUSH DAILY [facility] Morphine Sulfate (Morphine Sulfate) 2 mg IVPUSH Q2H PRN PRN Reason: PAIN LEVEL 1-5 Last Admin: 01/17/20 11:18 Dose: 2 mg Documented by: Pantoprazole Sodium (Protonix Iv) 40 mg IVPUSH DAILY [facility] Last Admin: 01/17/20 10:38 Dose: 40 mg Documented by: - Objective Vital Signs: Vital Signs Temperature 97.5 F L 01/17/20 11:00 Pulse Rate 130 H 01/17/20 11:00 Respiratory Rate 22 H 01/17/20 11:00 Blood Pressure 161/107 H 01/17/20 11:00 O2 Sat by Pulse Oximetry (%) 100 01/17/20 11:00 Constitutional: Yes: Other (restless lethargic) Cardiovascular: Yes: S1, S2 Respiratory: Yes: Regular, Poor Air Entry, Other (on nrb) Gastrointestinal: Yes: Normal Bowel Sounds, Soft Musculoskeletal: Yes: WNL Extremities: Yes: WNL Labs: CBC, BMP 01/17/20 09:40 01/17/20 09:40 INR, PTT INR 1.03 (0.83-1.09) 01/13/20 22:00 Assessment/Plan Problem List - Problems (1) Compression fracture of body of thoracic vertebra Code(s): S22.000A - WEDGE COMPRESSION FRACTURE OF UNSP THORACIC VERTEBRA, INIT (2) Lung cancer Code(s): C34.90 - MALIGNANT NEOPLASM OF UNSP PART OF UNSP BRONCHUS OR LUNG (3) Lung cancer associated cerebellar ataxia Code(s): C34.90 - MALIGNANT NEOPLASM OF UNSP PART OF UNSP BRONCHUS OR LUNG; G32.81 - CEREBELLAR ATAXIA IN DISEASES CLASSIFIED ELSEWHERE (4) Pneumonia Code(s): J18.9 - PNEUMONIA, UNSPECIFIED ORGANISM (5) Radiation fibrosis Code(s): J70.1 - CHRONIC AND OTHER PULMONARY MANIFESTATIONS DUE TO RADIATION 6 leukocytosis Assessment/Plan continue abx monitor wbc resp support rest as per the team await for final plan wbc trending down
[2020-01-17] MEDS ORDERED: MORPHINE SULFATE/0.9% NACL/PF 100 MG/100 ML BAG IVPB SCH ×2 (14:45→17:56)
[2020-01-17] MEDS: SODIUM CHLORIDE 1,000 ML IV SCH (17:40)
[2020-01-17] MEDS ORDERED: PT OWN MED DRAWER 7, Y5N ONE (21:45)
[2020-01-18] MEDS ORDERED: DEXTROSE 5%-WATER - 50 ML IVPB ONE ×2 (01:21→09:25)
[2020-01-18] MEDS ORDERED: PIPERACILLIN/TAZOBACTAM 3.375 GM VIAL IVPB ONE ×2 (01:21→09:25)
[2020-01-18] MEDS: PIPERACILLIN/TAZOB 3.375 GM 3.375 GM in DEXTROSE 5%-WATER - 50 ML IVPB SCH ×2 (01:26→10:16)
--- NOTE | 2020-01-18 06:29 | PN ---
Progress Note (short form) - Note Progress Note: Chief Complaint: Events noted, notes reviewed, in bed- lethargic and tachypneic, overall no change in status compared to yesterday's examination History of Present Illness: Seen and examined on telemetry. Events noted, notes reviewed, in bed- lethargic and tachypneic, overall no change in status compared to yesterday's examination As outlined in yesterday's note patient is for palliative care Medications: Current Medications Generic Name Dose Route Start Last Admin Trade Name Freq PRN Reason Stop Dose Admin Acetaminophen 650 mg 01/16/20 15:49 Tylenol Suppository - [place] Q4H PRN FEVER Albuterol Sulfate 1 amp 01/14/20 06:39 Ventolin 0.083% Nebulizer Soln - NEB Q6H PRN SHORT OF BREATH/WHEEZING Albuterol/Ipratropium 1 amp 01/14/20 08:00 01/17/20 20:34 Duoneb - NEB 1 amp RQID [facility] Administration Aspirin 81 mg 01/14/20 10:00 01/17/20 10:37 Ecotrin - PO Not Given DAILY [facility]EN[facility]Z Bisacodyl 10 mg 01/16/20 15:49 Dulcolax Suppository - [place] DAILY PRN CONSTIPATION Budesonide/Formoterol Fumarate 2 puff 01/14/20 10:00 01/17/20 21:16 Symbicort 80/4.5mcg - IH Not Given BID MENDEZ Enoxaparin Sodium 40 mg 01/16/20 10:00 01/17/20 10:38 Lovenox - SQ 40 mg DAILY [facility] Administration Doxycycline Hyclate 100 mg/ 100 mls @ 100 mls/hr 01/14/20 11:58 01/17/20 2 1:46 Dextrose IVPB 100 mls/hr BID [facility] Administration Piperacillin Sod/Tazobactam 50 mls @ 100 mls/hr 01/14/20 18:00 01/18/20 01:26 Sod 3.375 gm/ Dextrose IVPB 100 mls/hr Q8H-IV [facility] Administration Protocol Sodium Chloride 1,000 mls @ 30 mls/hr 01/15/20 14:39 01/17/20 17:40 Normal Saline - IV Not Given ASDIR [facility] Morphine Sulfate 100 mg in 100 mls @ 1 mls/hr 01/17/20 17:56 01/17/20 18:24 Morphine 100mg/100ml-0.9% Nacl IVPB 1 mg/hr TITR MENDEZ 1 mls/hr Administration Protocol 1 MG/HR Lorazepam 0.5 mg 01/16/20 11:36 01/17/20 20:43 Ativan Injection - IVPUSH 0.5 mg Q4H PRN Administration ANXIETY Methylprednisolone Sodium Succinate 40 mg 01/18/20 10:00 Solu-Medrol - IVPUSH DAILY [facility] Morphine Sulfate 2 mg 01/17/20 09:20 01/17/20 18:25 Morphine Sulfate IVPUSH 2 mg Q2H PRN Administration PAIN LEVEL 1-5 Pantoprazole Sodium 40 mg 01/14/20 10:00 01/17/20 10:38 Protonix Iv IVPUSH 40 mg DAILY [facility] Administration Review of Systems Unable to obtain/lethargy Vital Signs: Last Vital Signs Temp Pulse Resp BP Pulse Ox 97.3 F L 118 H 22 H 120/75 99 01/18/20 06:00 01/18/20 06:00 01/18/20 06:00 01/18/20 06:00 01/18/20 06:00 Intake & Output 01/15/20 01/16/20 01/17/20 01/18/20 23:59 23:59 23:59 23:59 Intake Total 1380 510 724 161 Balance 1380 510 724 161 Neck: Supple Negative JVD Respiratory: Diminished Breath Sounds at the Bases Cardiovascular: S1 S2 Regular Rate Rhythm Gastrointestinal: Soft Benign Normal Bowel Sounds Ext: Negative Edema Labs: CBC, BMP 01/17/20 09:40 01/17/20 09:40 Hepatic Panel Total Bilirubin 1.2 mg/dL (0.2-1) H 01/17/20 09:40 AST 46 U/L (15-37) H 01/17/20 09:40 ALT 41 U/L (13-61) 01/17/20 09:40 Alkaline Phosphatase 47 U/L (45-117) 01/17/20 09:40 Albumin 2.9 g/dl (3.4-5.0) L 01/17/20 09:40 INR, PTT INR 1.03 (0.83-1.09) 01/13/20 22:00 Assessment/Plan ASSESSMENT: 1. Sinus tachycardia referable to underlying pneumonia 2. 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 Coronary artery disease, visual coronary artery calcification on CT scan of the chest angina pectoris with evidence of demand ischemic injury 4. Diastolic left ventricular dysfunction with clinical class 0 [place] [employer] classification left ventricular failure 5. Hypertensive cardiovascular disease 6. Hypercholesterolemia 7. Toxic metabolic encephalopathy 8. Mechanical fall with compression fractures 9. History of bronchogenic carcinoma PLAN: 1. Antibiotics as per the primary team 2. Continue ASA therapy provided the patient is able to take oral therapy 3. As outlined in yesterday's note consider the addition of beta-omega therapy, Lopressor therapy at 25 mg twice daily provided the patient is able to take oral therapy 4. Overall poor prognosis for palliative care/management as per family request Katlin Hilton MD
--- NOTE | 2020-01-18 08:00 | PN ---
Progress Note, Physician History of Present Illness: PULMONARY LETHARGIC,RESTLESS ON 100%NRM,O2 SAT 94%,ON MORPHINE DRIP - Current Medication List Current Medications: Active Medications Acetaminophen (Tylenol Suppository -) [address] Q4H PRN PRN Reason: FEVER Albuterol Sulfate (Ventolin 0.083% Nebulizer Soln -) 1 amp NEB Q6H PRN PRN Reason: SHORT OF BREATH/WHEEZING Albuterol/Ipratropium (Duoneb -) 1 amp NEB RQID [facility] Last Admin: 01/17/20 20:34 Dose: 1 amp Documented by: Aspirin (Ecotrin -) 81 mg PO DAILY [facility] Last Admin: 01/17/20 10:37 Dose: Not Given Documented by: Bisacodyl (Dulcolax Suppository -) [address] DAILY PRN PRN Reason: CONSTIPATION Budesonide/Formoterol Fumarate (Symbicort 80/4.5mcg -) 2 puff IH BID [facility] Last Admin: 01/17/20 21:16 Dose: Not Given Documented by: Enoxaparin Sodium (Lovenox -) 40 mg SQ DAILY [facility] Last Admin: 01/17/20 10:38 Dose: 40 mg Documented by: Doxycycline Hyclate 100 mg/ (Dextrose) 100 mls @ 100 mls/hr IVPB BID [facility] Last Admin: 01/17/20 21:46 Dose: 100 mls/hr Documented by: Piperacillin Sod/Tazobactam (Sod 3.375 gm/ Dextrose) 50 mls @ 100 mls/hr IVPB Q8H-IV [facility]; Protocol Last Admin: 01/18/20 01:26 Dose: 100 mls/hr Documented by: Sodium Chloride (Normal Saline -) 1,000 mls @ 30 mls/hr IV ASDIR [facility] Last Admin: 01/17/20 17:40 Dose: Not Given Documented by: Morphine Sulfate (Morphine 100mg/100ml-0.9% Nacl) 100 mg in 100 mls @ 1 mls/hr IVPB TITR [facility]; Protocol Last Admin: 01/17/20 18:24 Dose: 1 mg/hr, 1 mls/hr Documented by: Lorazepam (Ativan Injection -) 0.5 mg IVPUSH Q4H PRN PRN Reason: ANXIETY Last Admin: 01/17/20 20:43 Dose: 0.5 mg Documented by: Methylprednisolone Sodium Succinate (Solu-Medrol -) 40 mg IVPUSH DAILY [facility] Morphine Sulfate (Morphine Sulfate) 2 mg IVPUSH Q2H PRN PRN Reason: PAIN LEVEL 1-5 Last Admin: 01/17/20 18:25 Dose: 2 mg Documented by: Pantoprazole Sodium (Protonix Iv) 40 mg IVPUSH DAILY [facility] Last Admin: 01/17/20 10:38 Dose: 40 mg Documented by: - Objective Vital Signs: Vital Signs Temperature 97.3 F L 01/18/20 06:00 Pulse Rate 118 H 01/18/20 06:00 Respiratory Rate 22 H 01/18/20 06:00 Blood Pressure 120/75 01/18/20 06:00 O2 Sat by Pulse Oximetry (%) 99 01/18/20 06:00 Constitutional: Yes: Well Nourished, Other (RESTLESS) Eyes: Yes: WNL HENT: Yes: WNL Neck: Yes: WNL Cardiovascular: Yes: Regular Rate and Rhythm, S1, S2 Respiratory: Yes: Intubated (DANIEL CRACKLES) Gastrointestinal: Yes: Normal Bowel Sounds, Soft Extremities: Yes: WNL Edema: No Labs: CBC, BMP 01/17/20 09:40 Assessment/Plan roblem List - Problems (1) Compression fracture of body of thoracic vertebra Code(s): S22.000A - WEDGE COMPRESSION FRACTURE OF UNSP THORACIC VERTEBRA, INIT (2) Lung cancer Code(s): C34.90 - MALIGNANT NEOPLASM OF UNSP PART OF UNSP BRONCHUS OR LUNG (3) Lung cancer associated cerebellar ataxia Code(s): C34.90 - MALIGNANT NEOPLASM OF UNSP PART OF UNSP BRONCHUS OR LUNG; G32.81 - CEREBELLAR ATAXIA IN DISEASES CLASSIFIED ELSEWHERE (4) Pneumonia Code(s): J18.9 - PNEUMONIA, UNSPECIFIED ORGANISM (5) Radiation fibrosis Code(s): J70.1 - CHRONIC AND OTHER PULMONARY MANIFESTATIONS DUE TO RADIATION EMPIRIC ANTIBIOTIC COVERAGE CONTINUE O2 BRONCHODILATORS AGREE WITH DNR/DNI COMFORT MEASURES TAPER STEROIDS MORPHINE DRP DR PATEL
[2020-01-18] MEDS: ALBUTEROL SO4 2.5/IPRATROPIUM 0.5 INH SOL 3 ML VIAL.NEB. NEB SCH ×2 (08:35→11:30)
--- NOTE | 2020-01-18 08:41 | PN ---
Progress Note, Physician History of Present Illness: Patient is an 85 year old female with a significant past medical history of bronchogenic Ca s/p lobectomy (last rad tx April 2018), right lung nodules s/p radiation (2017), HTN, HLD, COPD on 3L home O2, dementia [place] BIBA after unwtinessed fall at home. Found down on Left-side. No LOC at that time. At [facility], had multifocal complaint of pain to the Left chest wall, chest, and abd. - Current Medication List Current Medications: Active Medications Acetaminophen (Tylenol Suppository -) 650 mg [place] Q4H PRN PRN Reason: FEVER Albuterol Sulfate (Ventolin 0.083% Nebulizer Soln -) 1 amp NEB Q6H PRN PRN Reason: SHORT OF BREATH/WHEEZING Albuterol/Ipratropium (Duoneb -) 1 amp NEB RQID [facility] Last Admin: 01/17/20 20:34 Dose: 1 amp Documented by: Aspirin (Ecotrin -) 81 mg PO DAILY [facility] Last Admin: 01/17/20 10:37 Dose: Not Given Documented by: Bisacodyl (Dulcolax Suppository -) 10 mg [place] DAILY PRN PRN Reason: CONSTIPATION Budesonide/Formoterol Fumarate (Symbicort 80/4.5mcg -) 2 puff IH BID [facility] Last Admin: 01/17/20 21:16 Dose: Not Given Documented by: Enoxaparin Sodium (Lovenox -) 40 mg SQ DAILY [facility] Last Admin: 01/17/20 10:38 Dose: 40 mg Documented by: Doxycycline Hyclate 100 mg/ (Dextrose) 100 mls @ 100 mls/hr IVPB BID [facility] Last Admin: 01/17/20 21:46 Dose: 100 mls/hr Documented by: Piperacillin Sod/Tazobactam (Sod 3.375 gm/ Dextrose) 50 mls @ 100 mls/hr IVPB Q8H-IV [facility]; Protocol Last Admin: 01/18/20 01:26 Dose: 100 mls/hr Documented by: Sodium Chloride (Normal Saline -) 1,000 mls @ 30 mls/hr IV ASDIR [facility] Last Admin: 01/17/20 17:40 Dose: Not Given Documented by: Morphine Sulfate (Morphine 100mg/100ml-0.9% Nacl) 100 mg in 100 mls @ 1 mls/hr IVPB TITR [facility]; Protocol Last Admin: 01/17/20 18:24 Dose: 1 mg/hr, 1 mls/hr Documented by: Lorazepam (Ativan Injection -) 0.5 mg IVPUSH Q4H PRN PRN Reason: ANXIETY Last Admin: 01/17/20 20:43 Dose: 0.5 mg Documented by: Methylprednisolone Sodium Succinate (Solu-Medrol -) 40 mg IVPUSH DAILY [facility] Morphine Sulfate (Morphine Sulfate) 2 mg IVPUSH Q2H PRN PRN Reason: PAIN LEVEL 1-5 Last Admin: 01/17/20 18:25 Dose: 2 mg Documented by: Pantoprazole Sodium (Protonix Iv) 40 mg IVPUSH DAILY [facility] Last Admin: 01/17/20 10:38 Dose: 40 mg Documented by: - Objective Vital Signs: Vital Signs Temperature 97.3 F L 01/18/20 06:00 Pulse Rate 118 H 01/18/20 06:00 Respiratory Rate 22 H 01/18/20 06:00 Blood Pressure 120/75 01/18/20 06:00 O2 Sat by Pulse Oximetry (%) 99 01/18/20 06:00 Labs: CBC, BMP 01/17/20 09:40 01/17/20 09:40 INR, PTT INR 1.03 (0.83-1.09) 01/13/20 22:00 Problem List - Problems (1) Prophylactic measure Code(s): Z29.9 - ENCOUNTER FOR PROPHYLACTIC MEASURES, UNSPECIFIED (2) COVID-19 ruled out by laboratory testing Code(s): Z03.818 - ENCNTR FOR OBS FOR SUSP EXPSR TO OT BIOLG AGENTS RULED OUT (3) Acute metabolic encephalopathy Code(s): G93.41 - METABOLIC ENCEPHALOPATHY (4) Compression fracture of body of thoracic vertebra Code(s): S22.000A - WEDGE COMPRESSION FRACTURE OF UNSP THORACIC VERTEBRA, INIT (5) DNI (do not intubate) Code(s): Z78.9 - OTHER SPECIFIED HEALTH STATUS (6) Diabetes Code(s): E11.9 - TYPE 2 DIABETES MELLITUS WITHOUT COMPLICATIONS Qualifiers: Diabetes mellitus complication detail: with other neurological complication (7) DNR (do not resuscitate) Code(s): Z66 - DO NOT RESUSCITATE (8) Emphysema lung Code(s): J43.9 - EMPHYSEMA, UNSPECIFIED Qualifiers: Emphysema type: panlobular Qualified Code(s): J43.1 - Panlobular emphysema (9) Fall Code(s): W19.XXXA - UNSPECIFIED FALL, INITIAL ENCOUNTER Qualifiers: Encounter type: initial encounter Qualified Code(s): W19.XXXA - Unspecified fall, initial encounter (10) Lung cancer Code(s): C34.90 - MALIGNANT NEOPLASM OF UNSP PART OF UNSP BRONCHUS OR LUNG Qualifiers: Laterality: unspecified laterality Lung location: unspecified part of lung Qualified Code(s): C34.90 - Malignant neoplasm of unspecified part of unspecified bronchus or lung (11) Sepsis Code(s): A41.9 - SEPSIS, UNSPECIFIED ORGANISM (12) HLD (hyperlipidemia) Code(s): E78.5 - HYPERLIPIDEMIA, UNSPECIFIED Qualifiers: Hyperlipidemia type: pure hypercholesterolemia Qualified Code(s): E78.00 - Pure hypercholesterolemia, unspecified; E78.0 - Pure hypercholesterolemia (13) HTN (hypertension) Code(s): I10 - ESSENTIAL (PRIMARY) HYPERTENSION Qualifiers: Hypertension type: essential hypertension Qualified Code(s): I10 - Essential (primary) hypertension (14) Palliative care encounter Code(s): Z51.5 - ENCOUNTER FOR PALLIATIVE CARE
[2020-01-18] MEDS ORDERED: PT OWN MED DRAWER 7, Y5N ONE (09:24)
[2020-01-18] MEDS ORDERED: DOXYCYCLINE HYCLATE 100 MG VIAL ONE (09:24)
[2020-01-18] MEDS ORDERED: DEXTROSE 5%-WATER 100 ML IVPB ONE (09:24)
[2020-01-18] MEDS ORDERED: methylPREDNISolone NA SUCC 40 MG/1 ML VIAL IVPUSH SCH (10:00)
[2020-01-18] MEDS: DOXYCYCLINE INJECTION 100 MG in DEXTROSE 5%-WATER 100 ML IVPB SCH (10:16)
[2020-01-18] MEDS: ENOXAPARIN NA (PORCINE) 40 MG/0.4 ML DISP.SYRIN SQ SCH (10:16)
[2020-01-18] MEDS: PANTOPRAZOLE SODIUM 40 MG VIAL IVPUSH SCH (10:16)
[2020-01-18] MEDS: BUDESONIDE/FORMETEROL FUMARATE 80/4.5 mcg INHALER IH SCH (10:17)
--- NOTE | 2020-01-18 10:40 | DS ---
Physical Exam: SUBJECTIVE: Patient seen and examined. Transfer to [place] for Hospice care OBJECTIVE: Vital Signs Period Temp Pulse Resp BP Sys/Alonzo Pulse Ox Last 24 Hr 97.3 F-98.4 F 118-130 22-22 120-161/72-107 95-100 PHYSICAL EXAM Constitutional: Yes: Well Nourished, No Distress, Calm Eyes: Yes: WNL, Sclera Icterus HENT: Yes: WNL, Atraumatic, Normocephalic Neck: Yes: WNL, Supple, Trachea Midline Cardiovascular: Yes: WNL, Regular Rate and Rhythm Respiratory: Yes: WNL, Regular, CTA Bilaterally Gastrointestinal: Yes: Normal Bowel Sounds, Soft ...Rectal Exam: Yes: Deferred Genitourinary: Yes: WNL Breast(s): Yes: WNL Musculoskeletal: Yes: WNL Extremities: Yes: WNL Edema: No Peripheral Pulses WNL: Yes Peripheral Pulses: Left Radial: 2+, Right Radial: 2+, Left Doralis Pedis: 2+, Right Dorsalis Pedis: 2+, Left Femoral: 2+, Right Femoral: 2+ Integumentary: Yes: WNL Neurological: Yes: Alert, Tremors (to UE) ...Motor Strength: WNL Psychiatric: Yes: WNL, Alert, Oriented LABS Laboratory Results - last 24 hr 01/17/20 01/17/20 09:40 09:40 WBC 12.1 H RBC 3.72 Hgb 10.8 Hct 34.0 MCV 91.3 MCH 29.1 MCHC 31.8 L RDW 14.8 Plt Count 90 L D MPV 9.7 Absolute Neuts (auto) 10.7 H Neutrophils % 88.4 H Neutrophils % (Manual) 89.1 H Band Neutrophils % 0.0 Lymphocytes % 4.7 L D Lymphocytes % (Manual) 4.9 L D Monocytes % 6.7 Monocytes % (Manual) 5 Eosinophils % 0.0 Eosinophils % (Manual) 0.0 D Basophils % 0.2 Basophils % (Manual) 0.0 Myelocytes % (Man) 1 D Promyelocytes % (Man) 0 Blast Cells % (Manual) 0 Nucleated RBC % 0 Metamyelocytes 0 Hypochromia 0 Platelet Estimate Decreased Polychromasia 0 Poikilocytosis 0 Anisocytosis 0 Microcytosis 0 Macrocytosis 0 Sodium 146 H Potassium 3.7 Chloride 111 H Carbon Dioxide 23 Anion Gap 13 BUN 25.1 H Creatinine 0.6 Est GFR (CKD-EPI)AfAm 96.33 Est GFR (CKD-EPI)NonAf 83.11 Random Glucose 146 H Calcium 9.0 Total Bilirubin 1.2 H AST 46 H ALT 41 Alkaline Phosphatase 47 Total Protein 5.3 L Albumin 2.9 L HOSPITAL COURSE: Date of Admission:01/14/20 Date of Discharge: 01/18/20 - ....Imaging Other: Other (CT head: no acute pathology. CT A/P w/contrast:: no bowel ob struction. Some colonic diverticula, neg diverticulitis or colitis. Gallstones in the GB. Multiple liver lesions that have the appearance of cyst. Multiple uterine masses, some have appearance of calcified fibroids, but some are indeterminate. CT lumber spine: mild compression fracture of the superior endplate of T12, less than 50% loss of height. Slight anterolithesis of L5 on S1, likely degenerative. Sclerotic foci in the L2 vertebral body CT chest w/wo: advanced emphysematous changes, multiple b/l blebs. Infiltrate and atelectasis in the Right upper lobe. Infiltrates in the lower lobes. Healing Left rib fractures CT T spine: multiple compression fractures of T8, T9, T12 of age indeterminate. T5 compression fracture w/verteboplasty) Problem List - Problems (1) Prophylactic measure Assessment/Plan: FEN Fluids: NPO Electrolytes: no further blood draws as per family Nutrition: pleasure feeds with aspiration precautions DVT sq heparin Dispo Maintain as inpatient DNR/DNI discharge planning to [place] Code(s): Z29.9 - ENCOUNTER FOR PROPHYLACTIC MEASURES, UNSPECIFIED (2) COVID-19 ruled out by laboratory testing Assessment/Plan: negative pcr Code(s): Z03.818 - ENCNTR FOR OBS FOR SUSP EXPSR TO OTH BIOLG AGENTS RULED OUT (3) Acute metabolic encephalopathy Assessment/Plan: In the settng of sepsis in acute pnemonia. per chest ct: advanced emphysematous changes, multiple b/l blebs. Infiltrate and atelectasis in the Right upper lobe. Infiltrates in the lower lobes. Healing Left rib fractures On zosyn per ID-will c/t until dc'd to [facility] on a NRB Code(s): G93.41 - METABOLIC ENCEPHALOPATHY (4) Compression fracture of body of thoracic vertebra Assessment/Plan: patient is s/p fall patient family opted for hospice monitor pain levels started morphine drip, c/w ativan Code(s): S22.000A - WEDGE COMPRESSION FRACTURE OF UNSP THORACIC VERTEBRA, INIT (5) DNI (do not intubate) Assessment/Plan: appreciate Palliative care team plan for dc to [facility] Code(s): Z78.9 - OTHER SPECIFIED HEALTH STATUS (6) Diabetes Assessment/Plan: monitor BGMs hgA1c 5.5 on diabetic diet Code(s): E11.9 - TYPE 2 DIABETES MELLITUS WITHOUT COMPLICATIONS Qualifiers: Diabetes mellitus complication detail: with other neurological complication (7) DNR (do not resuscitate) Code(s): Z66 - DO NOT RESUSCITATE (8) Emphysema lung Assessment/Plan: On solumederol bronchodilators on supplemental oxygen to maintain oxygen above 92% Monitor airway Code(s): J43.9 - EMPHYSEMA, UNSPECIFIED Qualifiers: Emphysema type: panlobular Qualified Code(s): J43.1 - Panlobular emphysema (9) Fall Assessment/Plan: fall precautions Code(s): W19.XXXA - UNSPECIFIED FALL, INITIAL ENCOUNTER Qualifiers: Encounter type: initial encounter Qualified Code(s): W19.XXXA - Unspecified fall, initial encounter (10) Lung cancer Code(s): C34.90 - MALIGNANT NEOPLASM OF UNSP PART OF UNSP BRONCHUS OR LUNG Qualifiers: Laterality: unspecified laterality Lung location: unspecified part of lung Qualified Code(s): C34.90 - Malignant neoplasm of unspecified part of unspecified bronchus or lung (11) Sepsis Assessment/Plan: sepsis secondary to pneumonia Leukocytosis, elevated lactic acid, tachycardia, AMS CT chest w/wo contrast: advanced emphysematous changes, multiple b/l blebs. Infiltrate and atelectasis in the RIght upper lobe. Infiltrates in the lower lobes. c/w zosyn until trabnsfer to [facility] as per ID Pulmonary following Code(s): A41.9 - SEPSIS, UNSPECIFIED ORGANISM (12) HLD (hyperlipidemia) Code(s): E78.5 - HYPERLIPIDEMIA, UNSPECIFIED Qualifiers: Hyperlipidemia type: pure hypercholesterolemia Qualified Code(s): E78.00 - Pure hypercholesterolemia, unspecified; E78.0 - Pure hypercholesterolemia (13) HTN (hypertension) Code(s): I10 - ESSENTIAL (PRIMARY) HYPERTENSION Qualifiers: Hypertension type: essential hypertension Qualified Code(s): I10 - Essential (primary) hypertension (14) Palliative care encounter Assessment/Plan: plan for transfer to [place] appreciate Palliave care team assistance Code(s): Z51.5 - ENCOUNTER FOR PALLIATIVE CARE Minutes to complete discharge: 35 Discharge Summary Problems reviewed: Yes Reason For Visit: COMPRESSION FRACTURE OF BODY OF THROACIC VERTEBRA Current Active Problems Acute metabolic encephalopathy (Acute) COVID-19 ruled out by laboratory testing (Acute) Compression fracture of body of thoracic vertebra (Acute) DNI (do not intubate) (Acute) DNR (do not resuscitate) (Acute) DVT prophylaxis (Acute) Diabetes (Acute) Emphysema lung (Acute) Fall (Acute) Lung cancer (Acute) Mastoiditis (Acute) Palliative care encounter (Acute) Pneumonia (Acute) Prophylactic measure (Acute) Sepsis (Acute) - Instructions Diet, Activity, Other Instructions: Transfer to [facility] for hospice care. Continue MSO4 and ativan Referrals: Yehuda Ruff MD [Primary Care Provider] - Disposition: TRANSFER ACUTE CARE/OTHER HOSP - Home Medications Comprehensive Discharge Medication List: Ambulatory Orders Albuterol 2.5/Ipratropium 0.5 [Duoneb -] 1 neb IH QID 01/14/20 Albuterol 0.083% Nebulizer Tika [Ventolin 0.083% Nebulizer Soln -] 1 amp NEB Q6H PRN amp 01/18/20 Albuterol 2.5/Ipratropium 0.5 [Duoneb -] 1 amp NEB RQID amp 01/18/20 LORazepam [Ativan Injection -] 0.5 mg IVPUSH Q4H PRN vial 01/18/20 Morphine Sulfate 2 mg IVPUSH Q2H PRN vial 01/18/20 Problem List - Problems (1) Prophylactic measure Code(s): Z29.9 - ENCOUNTER FOR PROPHYLACTIC MEASURES, UNSPECIFIED (2) COVID-19 ruled out by laboratory testing Code(s): Z03.818 - ENCNTR FOR OBS FOR SUSP EXPSR TO OTH BIOLG AGENTS RULED OUT (3) Acute metabolic encephalopathy Code(s): G93.41 - METABOLIC ENCEPHALOPATHY (4) Compression fracture of body of thoracic vertebra Code(s): S22.000A - WEDGE COMPRESSION FRACTURE OF UNSP THORACIC VERTEBRA, INIT (5) DNI (do not intubate) Code(s): Z78.9 - OTHER SPECIFIED HEALTH STATUS (6) Diabetes Code(s): E11.9 - TYPE 2 DIABETES MELLITUS WITHOUT COMPLICATIONS Qualifiers: Diabetes mellitus complication detail: with other neurological complication (7) DNR (do not resuscitate) Code(s): Z66 - DO NOT RESUSCITATE (8) Emphysema lung Code(s): J43.9 - EMPHYSEMA, UNSPECIFIED Qualifiers: Emphysema type: panlobular Qualified Code(s): J43.1 - Panlobular emphysema (9) Fall Code(s): W19.XXXA - UNSPECIFIED FALL, INITIAL ENCOUNTER Qualifiers: Encounter type: initial encounter Qualified Code(s): W19.XXXA - Unspecified fall, initial encounter (10) Lung cancer Code(s): C34.90 - MALIGNANT NEOPLASM OF UNSP PART OF UNSP BRONCHUS OR LUNG Qualifiers: Laterality: unspecified laterality Lung location: unspecified part of lung Qualified Code(s): C34.90 - Malignant neoplasm of unspecified part of unspecified bronchus or lung (11) Sepsis Code(s): A41.9 - SEPSIS, UNSPECIFIED ORGANISM (12) HLD (hyperlipidemia) Code(s): E78.5 - HYPERLIPIDEMIA, UNSPECIFIED Qualifiers: Hyperlipidemia type: pure hypercholesterolemia Qualified Code(s): E78.00 - Pure hypercholesterolemia, unspecified; E78.0 - Pure hypercholesterolemia (13) HTN (hypertension) Code(s): I10 - ESSENTIAL (PRIMARY) HYPERTENSION Qualifiers: Hypertension type: essential hypertension Qualified Code(s): I10 - Essential (primary) hypertension (14) Palliative care encounter Code(s): Z51.5 - ENCOUNTER FOR PALLIATIVE CARE This patient is new to me today: No Emergency Visit: Yes ED Registration Date: 01/14/20 Care time: The patient presented to the Emergency Department on the above date and was hospitalized for further evaluation of their emergent condition. Critical Care patient: No - Discharge Referral Referred to [facility] No
[2020-01-18] MEDS: ASPIRIN COATED 81 MG TABLET.EC PO SCH (10:47)
--- NOTE | 2020-01-18 10:47 | PN ---
Progress Note, Physician History of Present Illness: no new issues continues to be lethargic restless on nrb - Current Medication List Current Medications: Active Medications Acetaminophen (Tylenol Suppository -) 650 mg [place] Q4H PRN PRN Reason: FEVER Albuterol Sulfate (Ventolin 0.083% Nebulizer Soln -) 1 amp NEB Q6H PRN PRN Reason: SHORT OF BREATH/WHEEZING Albuterol/Ipratropium (Duoneb -) 1 amp NEB RQID [facility] Last Admin: 01/18/20 08:35 Dose: Not Given Documented by: Aspirin (Ecotrin -) 81 mg PO DAILY [facility] Last Admin: 01/17/20 10:37 Dose: Not Given Documented by: Bisacodyl (Dulcolax Suppository -) 10 mg [place] DAILY PRN PRN Reason: CONSTIPATION Budesonide/Formoterol Fumarate (Symbicort 80/4.5mcg -) 2 puff IH BID [facility] Last Admin: 01/17/20 21:16 Dose: Not Given Documented by: Enoxaparin Sodium (Lovenox -) 40 mg SQ DAILY [facility] Last Admin: 01/17/20 10:38 Dose: 40 mg Documented by: Doxycycline Hyclate 100 mg/ (Dextrose) 100 mls @ 100 mls/hr IVPB BID [facility] Last Admin: 01/17/20 21:46 Dose: 100 mls/hr Documented by: Piperacillin Sod/Tazobactam (Sod 3.375 gm/ Dextrose) 50 mls @ 100 mls/hr IVPB Q8H-IV [facility]; Protocol Last Admin: 01/18/20 01:26 Dose: 100 mls/hr Documented by: Sodium Chloride (Normal Saline -) 1,000 mls @ 30 mls/hr IV ASDIR [facility] Last Admin: 01/17/20 17:40 Dose: Not Given Documented by: Morphine Sulfate (Morphine 100mg/100ml-0.9% Nacl) 100 mg in 100 mls @ 1 mls/hr IVPB TITR [facility]; Protocol Last Admin: 01/17/20 18:24 Dose: 1 mg/hr, 1 mls/hr Documented by: Lorazepam (Ativan Injection -) 0.5 mg IVPUSH Q4H PRN PRN Reason: ANXIETY Last Admin: 01/17/20 20:43 Dose: 0.5 mg Documented by: Methylprednisolone Sodium Succinate (Solu-Medrol -) 40 mg IVPUSH DAILY [facility] Morphine Sulfate (Morphine Sulfate) 2 mg IVPUSH Q2H PRN PRN Reason: PAIN LEVEL 1-5 Last Admin: 01/17/20 18:25 Dose: 2 mg Documented by: Pantoprazole Sodium (Protonix Iv) 40 mg IVPUSH DAILY [facility] Last Admin: 01/17/20 10:38 Dose: 40 mg Documented by: - Objective Vital Signs: Vital Signs Temperature 97.3 F L 01/18/20 06:00 Pulse Rate 118 H 01/18/20 06:00 Respiratory Rate 22 H 01/18/20 06:00 Blood Pressure 120/75 01/18/20 06:00 O2 Sat by Pulse Oximetry (%) 99 01/18/20 06:00 Constitutional: Yes: Other Cardiovascular: Yes: S1, S2 Respiratory: Yes: Poor Air Entry, Other (on nrb) Musculoskeletal: Yes: WNL Extremities: Yes: WNL Neurological: Yes: Other (lethargic) Labs: CBC, BMP 01/17/20 09:40 01/17/20 09:40 INR, PTT INR 1.03 (0.83-1.09) 01/13/20 22:00 Assessment/Plan Problem List - Problems (1) Compression fracture of body of thoracic vertebra Code(s): S22.000A - WEDGE COMPRESSION FRACTURE OF UNSP THORACIC VERTEBRA, INIT (2) Lung cancer Code(s): C34.90 - MALIGNANT NEOPLASM OF UNSP PART OF UNSP BRONCHUS OR LUNG (3) Lung cancer associated cerebellar ataxia Code(s): C34.90 - MALIGNANT NEOPLASM OF UNSP PART OF UNSP BRONCHUS OR LUNG; G32.81 - CEREBELLAR ATAXIA IN DISEASES CLASSIFIED ELSEWHERE (4) Pneumonia Code(s): J18.9 - PNEUMONIA, UNSPECIFIED ORGANISM (5) Radiation fibrosis Code(s): J70.1 - CHRONIC AND OTHER PULMONARY MANIFESTATIONS DUE TO RADIATION 6 leukocytosis Assessment/Plan continue supportive care prognosis is poor
[2020-01-18 11:13] VITALS: BP 136/74; PULSE 122; TEMP 98.4
== END 2020-01-18 14:45 | disposition hospice, inpatient (51) | DRG 871 ==
LOC: JER 21:12 → JERBED 01-14 04:00 → J4W 01-14 06:09
PROVIDERS: ADMIT Internal Medicine; ATTEND Nurse Practitioner Acute Care
DX: A41.9 Sepsis, unspecified organism (principal); J18.9 Pneumonia, unspecified organism; G93.41 Metabolic encephalopathy; M48.54XA Collapsed vertebra, not elsewhere classified, thoracic region, initial encounter for fracture; E87.2 Acidosis; I24.8 Other forms of acute ischemic heart disease; C34.90 Malignant neoplasm of unspecified part of unspecified bronchus or lung; G32.81 Cerebellar ataxia in diseases classified elsewhere; I10 Essential (primary) hypertension; E78.5 Hyperlipidemia, unspecified; Z99.81 Dependence on supplemental oxygen; Z87.891 Personal history of nicotine dependence; J84.10 Pulmonary fibrosis, unspecified; F03.90 Unspecified dementia, unspecified severity, without behavioral disturbance, psychotic disturbance, mood disturbance, and anxiety; E88.09 Other disorders of plasma-protein metabolism, not elsewhere classified; J43.9 Emphysema, unspecified; D72.829 Elevated white blood cell count, unspecified; Z66 Do not resuscitate; Z51.5 Encounter for palliative care; I25.10 Atherosclerotic heart disease of native coronary artery without angina pectoris; H70.90 Unspecified mastoiditis, unspecified ear; W19.XXXA Unspecified fall, initial encounter; Y93.9 Activity, unspecified; Y92.098 Other place in other non-institutional residence as the place of occurrence of the external cause; Y99.8 Other external cause status
CPT/HCPCS: 36415; 70450-TC; 71045-TC-FY; 71250-TC; 72128-TC; 72131-TC; 72170-TC-FY; 74177-TC; 80048; 80053; 81003; 82962; 83036; 83605; 83735; 84100; 84443; 84484; 85025; 85610; 85730; 87040; 87086; 93005; 93010; 94640; 99285-25; J0131; Q9967; U0003